=== PATIENT | male | born 1965 | race Caucasian/White ===

== ENCOUNTER 2017-02-02 15:30 | Emergency (ER) | payer OTHER ==
[2017-02-02 15:37] VITALS: BP 162/92; BMI 38.6
--- NOTE | 2017-02-02 17:22 | DR.EYE ---
HPI - Time Seen Time seen: 14:40 - PCP Primary Care Physician: carlos a - Complaint Chief Complaint Doctors Comments: History as stated. Visual acuity wnl. Chief Complaint:: patient stated he tripped and fell, hit his left eye on the gun safe around 1 pm today. Patient states he seen Dr. Infante at 2 today and was informed to come to ER.Patient denies any blurred vision/dilopia - Source History Provided: Patient - Mode of arrival Mode of Arrival: Ambulatory - Timing Onset of Chief Complaint: 02/02/17 PMH - PMH Past Medical History: Yes Past Medical History: Arthritis, COPD, Dyslipidemia, Hypertension, Hypothyroidism Past Surgical History: Yes Surgical History: Ortho Surgery Past Surgical History Comment: hernia repair - Family History History of Family Medical Conditions: Yes Family Medical History: Diabetes Mellitus, Hypertension - Social History Does patient currently use any type of tobacco product: Yes Have you used tobacco products in the last 12 months: Yes Type of Tobacco Use: Cigarettes Does any household member use tobacco: No Alcohol Use: None Do you use any recreational Drugs:: No Lives With: Significant Other Lives Where: Home - infectious screening In the last 2 months have you had wt loss of >10#?: NO Have you had fever, night sweats or hemotysis?: No Have you traveled outside the country in the last 6 months?: No Isolation: Standard ROS - Review of Systems Constitutional: negative: Diaphoresis Eyes: No Symptoms Reported ENTM: See HPI (Left medial canthus with a curvalinear laceration, 2cm laceration of left brown) Respiratoy: No Symptoms Reported Cardiovascular: No Symptoms Reported Gastrointestinal/Abdominal: No Symptoms Reported Genitourinary: No Symptoms Reported Neurological: No Symptoms Reported Musculoskeletal: No Symptoms Reported Integumentary: No Symptoms Reported Hematologic/Lymphatic: No Symptoms Reported Endocrine: No Symptoms Reported Psychiatric: No Symptoms Reported All Other Systems: Reviewed and Negative PE - Vital Signs Vitals: Temperature 97.8 F Pulse Rate 61 Respiratory Rate 19 Blood Pressure 162/92 O2 Sat by Pulse Oximetry 97 - General Limitations: No Limitations General Appearance: Alert, In No Apparent Distress - Head Head Exam: Normal Inspection, Atraumatic - Eyes Eye exam: Normal Appearance, PERRL, EOMI Eyelids: Laceration: Left (curvalinear 2cm laceration and a 2cm lac left brow) Pupils: Regular, Round: Bilateral Sclera/Conjunctival: Normal Inspection: Bilateral Anterior Chamber: Normal Inspection: Bilateral - ENT ENT Exam: Normal Exam, Normal Oropharynx External Ear Exam: Normal External Inspection TM/Canal Exam: Bilateral Normal Nose Exam: Normal Nose Exam, Sinus Tenderness Mouth Exam: Normal Inspection Throat Exam: Normal Inspection - Neck Neck Exam: Normal Inspection - Chest Chest Inspection: Normal Inspection - Respiratory Respiratory Exam: Normal Lung Sounds Bilat Respiratory Exam: Bilateral Clear to Auscultation - Cardiovascular Cardiovascular Exam: Regular Rate, Normal Rhythm - Abdominal Exam Abdominal Exam: Normal Inspection Abdominal Tenderness: negative: RUQ, RLQ, LUQ, LLQ, Epigastrium, Suprapubic, Diffuse, Mild, Moderate, Severe, Other - Extremities Extremities Exam: Normal Inspection, Full ROM - Back Back Exam: Normal Inspection - Neurologic Neurological Exam: Alert, Oriented X3, CN II-XII Intact - Psychiatric Psychiatric Exam: Normal Affect - Skin Skin Exam: Warm, Dry, Intact Procedures - Laceration/Wound Repair Left Eye Wound Length (cm): 4 Wound's Depth, Shape: Superficial, Linear, Irregular Wound Explored: clean Betadine Prep?: Yes Anesthesia: 1% Lidocaine w/ Epi Wound Repaired With: sutures Suture Size/Type: 5:0, Prolene Number of Sutures: 6 Layer Closure?: No - Diagnosis Discharge Problem: Left eye lid laceration Eye injury Qualifiers: Encounter type: initial encounter Laterality: left Qualified Code(s): S05.92XA - Unspecified injury of left eye and orbit, initial encounter - Discharge Plan Condition: Stable - Follow ups/Referrals Follow ups/Referrals: JENNI INFANTE [Primary Care Provider] - 3 days - Instructions
== END 2017-02-02 17:44 | disposition home or self-care (01) ==
LOC: ER 16:06
PROC: 08Q Eye, Repair (ICD-10-PCS; principal; 2017-02-02)
DX: S01.112A Laceration without foreign body of left eyelid and periocular area, initial encounter (principal); S05.92XA Unspecified injury of left eye and orbit, initial encounter; W01.198A Fall on same level from slipping, tripping and stumbling with subsequent striking against other object, initial encounter; Y92.9 Unspecified place or not applicable
CPT/HCPCS: 12013; 99282

== ENCOUNTER 2021-12-31 06:40 | Inpatient (IN) ==
--- NOTE | 2021-12-31 07:05 | DR.GENAD ---
HPI <GENO MUSTAFA - Last Filed: 12/31/21 07:12> Time Seen Time Seen by Provider: 12/31/21 07:03 PCP Primary Care Physician: DR PETERSON HPI Comment HPI Comment: A 56 y/o male presenting with scrotal swelling and tenderness onset since yesterday morning. He has had no fever. He states that he had a similar episode last year. He denies dysuria. Complaint/Symptoms Chief Complaint:: PT C/O SCROTAL SWELLING THAT STARTED YESTERDAY AND ALSO C/O "KNOT" IN THE SUPRAPUBIC AREA THAT IS PAINFUL WHEN SITTING DOWN. PT STATES THAT HE HAD THIS SAME PROBLEM LAST YEAR AND WAS DIAGNOSED WITH EPIDIMYSIS AND BECAME SEPTIC. Self Treatment fo Chief Complaint: PT WAS SEEN IN ER AND WAS DIAGNOSED WITH UTI ON 12/28/21 AND STARTED ON LEVAQUIN 750MG PO DAILY X 4 DAYS COVID-19 Coronavirus risk:travel/contact w/high risk person: No Has patient experienced Coronavirus symptoms: No Source History Provided: Patient Mode of Arrival Mode of Arrival: Ambulatory Timing Onset of Chief Complaint: 12/30/21 Came on: Gradually PMH <GENO MUSTAFA - Last Filed: 12/31/21 07:12> PMH Past Medical History: Yes Past Medical History: Anxiety, Depression, Diabetes, Hypertension and Hypothyroidism Past Medical History Comment: PULMONARY HTN Past Surgical History: Yes Surgical History: Ortho Surgery Past Surgical History Comment: GROIN SURGERY, HERNIA REPAIR Family History History of Family Medical Conditions: Yes Family Medical History: Diabetes Mellitus, Heart Failure and Hypertension Social History Does patient currently use any type of tobacco product: Yes Have you used tobacco products in the last 12 months: Yes Type of Tobacco Use: Cigarettes Does any household member use tobacco: No Alcohol Use: None Do you use any recreational Drugs:: No Lives With: Alone Lives Where: Home Travel Risk Coronavirus risk:travel/contact w/high risk person: No Has patient experienced Coronavirus symptoms: No Infectious screening In the last 2 months have you had wt loss of >10#?: NO Have you had fever, night sweats or hemotysis?: No Have you traveled outside the country in the last 6 months?: No Isolation: Standard ROS <GENO CEDILLO - Last Filed: 12/31/21 07:12> Review of Systems Constitutional: No Symptoms Reported Eyes: No Symptoms Reported ENTM: No Symptoms Reported Respiratoy: No Symptoms Reported Cardiovascular: No Symptoms Reported Gastrointestinal/Abdominal: No Symptoms Reported Genitourinary: Other (scrotal swelling) Neurological: No Symptoms Reported Musculoskeletal: No Symptoms Reported Integumentary: No Symptoms Reported Hematologic/Lymphatic: No Symptoms Reported Endocrine: No Symptoms Reported Psychiatric: No Symptoms Reported All Other Systems: Reviewed and Negative PE <GENO JUNE - Last Filed: 12/31/21 07:12> Vital Signs Vitals: Temperature 98.7 F Pulse Rate 84 Respiratory Rate 20 Blood Pressure [Right Arm] 156/78 Blood Pressure 121/71 O2 Sat by Pulse Oximetry 96 General Limitations: No Limitations General Appearance: Alert and In No Apparent Distress Head Head Exam: Normal Inspection, Atraumatic and Normocephalic Eyes Eye exam: Normal Appearance and EOMI ENT ENT Exam: Normal Exam, Normal Oropharynx, Normal External Ear Exam and Mucous Membranes Moist Neck Neck Exam: Normal Inspection, Full ROM and Trachea Midline Chest Chest Inspection: Normal Inspection and Symmetric Chest Wall Rise Respiratory Respiratory Exam: Normal Lung Sounds Bilat Cardiovascular Cardiovascular Exam: Regular Rate, Normal Rhythm, Normal Heart Sounds, +S1 and +S2 Abdominal Exam Abdominal Exam: Normal Inspection, Normal Bowel Sounds and Soft Extremities Extremities Exam: Normal Inspection and Full ROM Back Back Exam: Normal Inspection and Full ROM Neurologic Neurological Exam: Alert and Oriented X3 Psychiatric Psychiatric Exam: Normal Affect and Normal Mood Skin Skin Exam: Dry, Intact and Normal Color Other Exam Other Exam: EXAM: He is circumcised. There is no uretheral d/c noted. THere is scrotal swelling noted but no testicular tenderness elicited. <Singh Linares - Last Filed: 12/31/21 11:19> Vital Signs Vitals: Temperature 98.7 F Pulse Rate 84 Respiratory Rate 20 Blood Pressure [Right Arm] 156/78 Blood Pressure 121/71 O2 Sat by Pulse Oximetry 96 <Singh Linares - Last Filed: 12/31/21 11:19> Treatment Treatment: Pt signed over by Dr June. W/u shows increasing WBC count from previous visit, not feeling better. Pt had similar episode 1 year ago, treated for epididymitis, which turned into necrotizing fasciitis, had to have surgery to drain pus. Scrotum currently soft, mild tenderness. Pt given IV levaquin, flagyl. 1045 - Discussed with his attending, Dr Peterson. Will admit for IV antibiotics, especially in view of his past history. ROR <GENO JUNE - Last Filed: 12/31/21 07:12> Labs Reviewed Result Diagrams: 12/31/21 07:17 12/31/21 07:17 Laboratory: WBC 19.4 X10^3/uL (3.6-10.0) H D 12/31/21 07:17 RBC 4.62 X10^6/uL (4.7-6.0) L 12/31/21 07:17 Hgb 14.3 g/dL (13.5-18.0) 12/31/21 07:17 Hct 41.6 % (42.0-54.0) L 12/31/21 07:17 MCV 90.0 fL (80.0-100.0) 12/31/21 07:17 MCH 31.0 pg (27.0-34.0) 12/31/21 07:17 MCHC 34.4 g/dL (33.0-35.0) 12/31/21 07:17 RDW 15.4 % (11.6-16.5) 12/31/21 07:17 Plt Count 181 X10^3/uL (150.0-450.0) 12/31/21 07:17 MPV 7.7 fL (7.4-11.0) 12/31/21 07:17 Neut % (Auto) 83.4 % (42.0-75.0) H 12/31/21 07:17 Lymph % (Auto) 8.0 % (21.0-51.0) L 12/31/21 07:17 [place] % (Auto) 6.5 % (0.0-13.0) 12/31/21 07:17 Eos % (Auto) 0.5 % (0.9-2.9) L 12/31/21 07:17 Baso % (Auto) 1.6 % (0.2-1.0) H 12/31/21 07:17 Neut # (Auto) 16.2 x10^3/uL (2.2-4.8) H 12/31/21 07:17 Lymph # (Auto) 1.5 X10^3/uL (1.3-2.9) 12/31/21 07:17 [place] # (Auto) 1.3 x10^3/uL (0.3-0.8) H 12/31/21 07:17 Eos # (Auto) 0.1 x10^3/uL (0.0-0.2) 12/31/21 07:17 Baso # (Auto) 0.3 X10^3/uL (0.0-0.1) H 12/31/21 07:17 Absolute Nucleated RBC 0.0 /100WBC 12/31/21 07:17 Sodium 136 mmol/L (136-145) 12/31/21 07:17 Corrected Sodium 137 mmol/L (136-145) 12/31/21 07:17 Potassium 4.1 mmol/L (3.5-5.1) 12/31/21 07:17 Chloride 104 mmol/L (98-107) 12/31/21 07:17 Carbon Dioxide 21.8 mmol/L (21-32) 12/31/21 07:17 BUN 21 mg/dL (7-18) H 12/31/21 07:17 Creatinine 1.11 mg/dL (0.70-1.30) 12/31/21 07:17 Est GFR (MDRD) Af Amer > 60 (>60) 12/31/21 07:17 Est GFR (MDRD) Non-Af > 60 (>60) 12/31/21 07:17 Glucose 128 mg/dL (65-99) H 12/31/21 07:17 Lactic Acid 0.6 mmol/L (0.4-2.0) 12/31/21 07:58 Calcium 8.2 mg/dL (8.5-10.1) L 12/31/21 07:17 Corrected Calcium 9.5 mg/dL (8.5-10.1) 12/31/21 07:17 Total Bilirubin 0.80 mg/dL (0.2-1.0) 12/31/21 07:17 AST 14 Units/L (15-37) L 12/31/21 07:17 ALT 27 Units/L (12-78) 12/31/21 07:17 Alkaline Phosphatase 175 Units/L (46-116) H 12/31/21 07:17 Total Protein 6.7 g/dL (6.4-8.2) 12/31/21 07:17 Albumin 2.4 g/dL (3.4-5.0) L 12/31/21 07:17 Globulin 4.3 g/dL (2.5-4.5) 12/31/21 07:17 Albumin/Globulin Ratio 0.6 Ratio (1.1-2.1) L 12/31/21 07:17 Specimen Type Clean catch urine 12/31/21 08:30 Urine Color Yellow (YELLOW) 12/31/21 08:30 Urine Appearance Clear (CLEAR) 12/31/21 08:30 Urine pH 6.0 (5.0 - 8.0) 12/31/21 08:30 Ur Specific [place] 1.015 (1.000-1.030) 12/31/21 08:30 Urine Protein Negative (NEGATIVE) 12/31/21 08:30 Urine Glucose (UA) Negative (NEGATIVE) 12/31/21 08:30 Urine Ketones Negative (NEGATIVE) 12/31/21 08:30 Urine Blood Negative (NEGATIVE) 12/31/21 08:30 Urine Nitrite Negative (NEGATIVE) 12/31/21 08:30 Urine Bilirubin Negative (NEGATIVE) 12/31/21 08:30 Urine Urobilinogen Normal (NORMAL) 12/31/21 08:30 Ur Leukocyte Esterase Negative (NEGATIVE) 12/31/21 08:30 SARS-CoV-2 (PCR) Negative (NEGATIVE) 12/31/21 08:50 <Singh Linares - Last Filed: 12/31/21 11:19> Labs Reviewed Laboratory: WBC 19.4 X10^3/uL (3.6-10.0) H D 12/31/21 07:17 RBC 4.62 X10^6/uL (4.7-6.0) L 12/31/21 07:17 Hgb 14.3 g/dL (13.5-18.0) 12/31/21 07:17 Hct 41.6 % (42.0-54.0) L 12/31/21 07:17 MCV 90.0 fL (80.0-100.0) 12/31/21 07:17 MCH 31.0 pg (27.0-34.0) 12/31/21 07:17 MCHC 34.4 g/dL (33.0-35.0) 12/31/21 07:17 RDW 15.4 % (11.6-16.5) 12/31/21 07:17 Plt Count 181 X10^3/uL (150.0-450.0) 12/31/21 07:17 MPV 7.7 fL (7.4-11.0) 12/31/21 07:17 Neut % (Auto) 83.4 % (42.0-75.0) H 12/31/21 07:17 Lymph % (Auto) 8.0 % (21.0-51.0) L 12/31/21 07:17 [place] % (Auto) 6.5 % (0.0-13.0) 12/31/21 07:17 Eos % (Auto) 0.5 % (0.9-2.9) L 12/31/21 07:17 Baso % (Auto) 1.6 % (0.2-1.0) H 12/31/21 07:17 Neut # (Auto) 16.2 x10^3/uL (2.2-4.8) H 12/31/21 07:17 Lymph # (Auto) 1.5 X10^3/uL (1.3-2.9) 12/31/21 07:17 [place] # (Auto) 1.3 x10^3/uL (0.3-0.8) H 12/31/21 07:17 Eos # (Auto) 0.1 x10^3/uL (0.0-0.2) 12/31/21 07:17 Baso # (Auto) 0.3 X10^3/uL (0.0-0.1) H 12/31/21 07:17 Absolute Nucleated RBC 0.0 /100WBC 12/31/21 07:17 Sodium 136 mmol/L (136-145) 12/31/21 07:17 Corrected Sodium 137 mmol/L (136-145) 12/31/21 07:17 Potassium 4.1 mmol/L (3.5-5.1) 12/31/21 07:17 Chloride 104 mmol/L (98-107) 12/31/21 07:17 Carbon Dioxide 21.8 mmol/L (21-32) 12/31/21 07:17 BUN 21 mg/dL (7-18) H 12/31/21 07:17 Creatinine 1.11 mg/dL (0.70-1.30) 12/31/21 07:17 Est GFR (MDRD) Af Amer > 60 (>60) 12/31/21 07:17 Est GFR (MDRD) Non-Af > 60 (>60) 12/31/21 07:17 Glucose 128 mg/dL (65-99) H 12/31/21 07:17 Lactic Acid 0.6 mmol/L (0.4-2.0) 12/31/21 07:58 Calcium 8.2 mg/dL (8.5-10.1) L 12/31/21 07:17 Corrected Calcium 9.5 mg/dL (8.5-10.1) 12/31/21 07:17 Total Bilirubin 0.80 mg/dL (0.2-1.0) 12/31/21 07:17 AST 14 Units/L (15-37) L 12/31/21 07:17 ALT 27 Units/L (12-78) 12/31/21 07:17 Alkaline Phosphatase 175 Units/L (46-116) H 12/31/21 07:17 Total Protein 6.7 g/dL (6.4-8.2) 12/31/21 07:17 Albumin 2.4 g/dL (3.4-5.0) L 12/31/21 07:17 Globulin 4.3 g/dL (2.5-4.5) 12/31/21 07:17 Albumin/Globulin Ratio 0.6 Ratio (1.1-2.1) L 12/31/21 07:17 Specimen Type Clean catch urine 12/31/21 08:30 Urine Color Yellow (YELLOW) 12/31/21 08:30 Urine Appearance Clear (CLEAR) 12/31/21 08:30 Urine pH 6.0 (5.0 - 8.0) 12/31/21 08:30 Ur Specific [place] 1.015 (1.000-1.030) 12/31/21 08:30 Urine Protein Negative (NEGATIVE) 12/31/21 08:30 Urine Glucose (UA) Negative (NEGATIVE) 12/31/21 08:30 Urine Ketones Negative (NEGATIVE) 12/31/21 08:30 Urine Blood Negative (NEGATIVE) 12/31/21 08:30 Urine Nitrite Negative (NEGATIVE) 12/31/21 08:30 Urine Bilirubin Negative (NEGATIVE) 12/31/21 08:30 Urine Urobilinogen Normal (NORMAL) 12/31/21 08:30 Ur Leukocyte Esterase Negative (NEGATIVE) 12/31/21 08:30 SARS-CoV-2 (PCR) Negative (NEGATIVE) 12/31/21 08:50 Opioid <GENO JUNE - Last Filed: 12/31/21 07:12> Opioid Risk Tool Age (Donnie box if 16-45): No History of Preadolescent Sexual Abuse: No Total: 0 Total Score Risk Category: Low Risk Copyright: Pan FISHER predicting aberrant behaviors <Singh Linares - Last Filed: 12/31/21 11:19> Opioid Risk Tool Total: 0 Total Score Risk Category: Low Risk Discharge Plan Diagnosis Discharge Problem: Right epididymitis Discharge Plan Patient Disposition: ADMITTED INPATIENT Condition: Stable Orders to Discharge Patient Discharge Orders: Transfer (Routine); Ordered 12/31/21 Ordered By: Singh Linares
[2021-12-31 07:30] LABS: BASOPHILS # (AUTO) 0.3 X10^3/uL (0.0-0.1); BASOPHILS % (AUTO) 1.6 % (0.2-1.0); EOSINOPHILS # (AUTO) 0.1 x10^3/uL (0.0-0.2); EOSINOPHILS % (AUTO) 0.5 % (0.9-2.9); HEMATOCRIT 41.6 % (42.0-54.0); HEMOGLOBIN 14.3 g/dL (13.5-18.0); LYMPHOCYTES # (AUTO) 1.5 X10^3/uL (1.3-2.9); MEAN CORPUSCULAR HGB CONC 34.4 g/dL (33.0-35.0); MEAN PLATELET VOLUME 7.7 fL (7.4-11.0); MONOCYTES # (AUTO) 1.3 x10^3/uL (0.3-0.8); MONOCYTES % (AUTO) 6.5 % (0.0-13.0); NEUTROPHILS # (AUTO) 16.2 x10^3/uL (2.2-4.8); NEUTROPHILS % (AUTO) 83.4 % (42.0-75.0); RED BLOOD COUNT 4.62 X10^6/uL (4.7-6.0); RED CELL DISTRIBUTION WIDTH 15.4 % (11.6-16.5); WHITE BLOOD COUNT 19.4 X10^3/uL (3.6-10.0)
[2021-12-31 07:39] LABS: ALANINE AMINOTRANSFERASE 27 Units/L (12-78); ALBUMIN 2.4 g/dL (3.4-5.0); ALKALINE PHOSPHATASE 175 Units/L (46-116); ASPARTATE AMINO TRANSFERASE 14 Units/L (15-37); BLOOD UREA NITROGEN 21 mg/dL (7-18); CALCIUM 8.2 mg/dL (8.5-10.1); CARBON DIOXIDE 21.8 mmol/L (21-32); CHLORIDE 104 mmol/L (98-107); COR CA(FOR HYPOALB) 9.5 mg/dL (8.5-10.1); COR NA(FOR HYPERGLY) 137 mmol/L (136-145); CREATININE 1.11 mg/dL (0.70-1.30); SODIUM 136 mmol/L (136-145); TOTAL PROTEIN 6.7 g/dL (6.4-8.2); eGFR NON BLACK RACES > 60 (>60)
[2021-12-31 08:41] LABS: BILIRUBIN,URINE NEGATIVE (NEGATIVE); BLOOD/HEMOGLOBIN,URINE NEGATIVE (NEGATIVE); GLUCOSE, URINE NEGATIVE (NEGATIVE); KETONES,URINE NEGATIVE (NEGATIVE); LEUKOCYTE ESTERASE ,URINE NEGATIVE (NEGATIVE); NITRITES,URINE NEGATIVE (NEGATIVE); PROTEIN,URINE NEGATIVE (NEGATIVE); UROBILINOGEN,URINE NORMAL (NORMAL)
[2021-12-31 08:43] LABS: APPEARANCE,URINE CLEAR (CLEAR); COLOR,URINE YELLOW (YELLOW)
[2021-12-31] MEDS ORDERED: LEVAQUIN PREMIX IV 750 MG 750 MG/150 ML BAG IV SCH (09:00)
[2021-12-31] MEDS ORDERED: NS 1,000 ML IV 1,000 ML ONE (09:00)
[2021-12-31] MEDS ORDERED: FLAGYL IV PREMIX 500 MG BAG 500 MG/100 ML BAG IV ONE (09:00)
[2021-12-31] MEDS: FLAGYL IV PREMIX 500 MG BAG 500 MG/100 ML BAG IV SCH ×2 (09:07→20:59)
[2021-12-31] MEDS: NS 1,000 ML IV 1,000 ML IV SCH ×2 (09:08→21:01)
[2021-12-31] MEDS ORDERED: LEVAQUIN PREMIX IV 750 MG 750 MG/150 ML BAG IV ONE (10:25)
--- NOTE | 2021-12-31 11:18 | US ---
HISTORYSwollen scrotum.STUDYTESTICULARCOMPARISONTesticu lar ultrasound 04/26/2021.TECHNIQUETesticular ultrasound with Doppler.FINDINGSRight testicle measures 4.2 x 2.1 x 3.7 cm. Left testicle measures 4.6 x 2.2 x 3.8 cm. Right epididymal head measures 3.1 x 1.8 x 3.5 cm. Left epididymal head measures 3.4 x 2 x 4.1 cm. The epididymi appear enlarged and hyperechoic bilaterally. 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 Normal Doppler flow to both testicles. The scrotal wall is thickened. No hydrocele. No definite varicocele or spermatocele.IMPRESSIONEnlarged hyperechoic epididymi may represent bilateral epididymitis although the epididymi are not hypervascular on the images provided as is typical with epididymitis. Thickened scrotal wall may be reactive or due to cellulitis.Electronically signed by: Luis Crowe (Dec 31, 2021 11:17:11)
[2021-12-31] MEDS ORDERED: ALBUTEROL SULFATE 0.63 MG/3 ML IN PRN (11:23)
[2021-12-31] MEDS: SYNTHROID 100 mcg TAB PO SCH (11:41)
[2021-12-31] MEDS: CRESTOR TAB 10 MG PO SCH ×2 (11:41→20:58)
[2021-12-31] MEDS: NICOTINE PATCH TD SCH (14:36)
[2021-12-31] MEDS: MORPHINE SULFATE INJ 4 MG IVP PRN ×2 (18:04→22:44)
[2021-12-31] MEDS ORDERED: VANCOMYCIN IV ONE (19:59)
[2021-12-31] MEDS ORDERED: GENTAMICIN TOPICAL OINT ONE (19:59)
[2021-12-31] MEDS ORDERED: PIGGYBACK IV ONE (19:59)
[2021-12-31] MEDS ORDERED: VANCOMYCIN IV *PREMIX 1 G/200 ML BAG 1 G/200 ML PIGGYBACK IV SCH (20:00)
[2021-12-31] MEDS ORDERED: GLUCOPHAGE ONE (20:14)
[2021-12-31] MEDS: GENTAMICIN TOPICAL OINT TOP SCH (20:55)
[2021-12-31] MEDS: GLUCOPHAGE PO SCH (20:58)
[2021-12-31] MEDS ORDERED: VANCOMYCIN IV *PREMIX 750 mg/150 ML BAG 750 MG/150 ML PIGGYBACK IV ONE (21:00)
[2022-01-01 06:17] LABS: BASOPHILS # (AUTO) 0.2 X10^3/uL (0.0-0.1); BASOPHILS % (AUTO) 1.1 % (0.2-1.0); EOSINOPHILS # (AUTO) 0.1 x10^3/uL (0.0-0.2); EOSINOPHILS % (AUTO) 0.7 % (0.9-2.9); HEMATOCRIT 41.9 % (42.0-54.0); HEMOGLOBIN 14.3 g/dL (13.5-18.0); LYMPHOCYTES # (AUTO) 2.4 X10^3/uL (1.3-2.9); LYMPHOCYTES % (AUTO) 13.8 % (21.0-51.0); MEAN CORPUSCULAR HEMOGLOBIN 30.8 pg (27.0-34.0); MEAN CORPUSCULAR HGB CONC 34.1 g/dL (33.0-35.0); MEAN CORPUSCULAR VOLUME 90.3 fL (80.0-100.0); MEAN PLATELET VOLUME 8.2 fL (7.4-11.0); MONOCYTES # (AUTO) 1.5 x10^3/uL (0.3-0.8); MONOCYTES % (AUTO) 8.8 % (0.0-13.0); NEUTROPHILS # (AUTO) 13.2 x10^3/uL (2.2-4.8); NEUTROPHILS % (AUTO) 75.6 % (42.0-75.0); RED BLOOD COUNT 4.64 X10^6/uL (4.7-6.0); RED CELL DISTRIBUTION WIDTH 15.6 % (11.6-16.5); WHITE BLOOD COUNT 17.5 X10^3/uL (3.6-10.0)
[2022-01-01 06:40] LABS: LACTIC ACID 0.6 mmol/L (0.4-2.0)
[2022-01-01 06:48] LABS: ALANINE AMINOTRANSFERASE 24 Units/L (12-78); ALBUMIN 2.3 g/dL (3.4-5.0); ALKALINE PHOSPHATASE 172 Units/L (46-116); ASPARTATE AMINO TRANSFERASE 15 Units/L (15-37); BLOOD UREA NITROGEN 14 mg/dL (7-18); CALCIUM 8.8 mg/dL (8.5-10.1); CARBON DIOXIDE 23.5 mmol/L (21-32); CHLORIDE 105 mmol/L (98-107); COR CA(FOR HYPOALB) 10.2 mg/dL (8.5-10.1); COR NA(FOR HYPERGLY) 137 mmol/L (136-145); CREATININE 0.85 mg/dL (0.70-1.30); SODIUM 137 mmol/L (136-145); TOTAL PROTEIN 7.1 g/dL (6.4-8.2); eGFR NON BLACK RACES > 60 (>60)
[2022-01-01] MEDS ORDERED: GLUCOPHAGE ONE ×2 (08:59→19:39)
[2022-01-01] MEDS: GLUCOPHAGE PO SCH ×2 (09:02→20:22)
[2022-01-01] MEDS: NORVASC TAB 10 MG PO SCH (09:02)
[2022-01-01] MEDS: NICOTINE PATCH TD SCH (09:02)
[2022-01-01] MEDS: PAXIL PO SCH (09:02)
[2022-01-01] MEDS: SYNTHROID 100 mcg TAB PO SCH (09:02)
[2022-01-01] MEDS: NS 1,000 ML IV 1,000 ML IV SCH (09:04)
[2022-01-01] MEDS: GENTAMICIN TOPICAL OINT TOP SCH ×2 (09:04→20:22)
[2022-01-01] MEDS: VANCOMYCIN IV *PREMIX 1.25 G/250 ML BAG 1.25 G/250 ML PIGGYBACK IV SCH ×2 (09:04→20:21)
[2022-01-01] MEDS: FLAGYL IV PREMIX 500 MG BAG 500 MG/100 ML BAG IV SCH ×2 (10:25→21:23)
[2022-01-01] MEDS: LEVAQUIN PREMIX IV 750 MG 750 MG/150 ML BAG IV SCH (11:40)
--- NOTE | 2022-01-01 12:05 | DR.H&P ---
H&P - History & Physical for Day of: H&P Date: 12/31/21 - Chief Complaint Chief Complaint: SCROTAL SWELLING AND PAIN - History of Present Illness History of Present Illness: PATIENT IS A 56 YEAR OLD WHITE MALE. HE IS A REGULAR PATIENT OF OURS. HE PRESENTED WITH REPORTS OF SCROTAL PAIN THAT STARTED ONE DAY PRIOR TO ARRIVAL. HE REPORTS A KNOT IN THE SUPRAPUBIC ARE THAT IS PAINFUL WHEN SITTING. HE ALSO REPORTS A SMALL AMOUNT OF SEROSANGUINOUS DRAINAGE FROM SCROTUM. PATIENT REPORTS A HISTORY OF EPIDIDIMYTIS IN THE PAST, FOR WHICH HE BECAME SEPTIC. HE HAS BEEN TAKING LEVAQUIN 750MG PO DAILY FOR THE PAST 4 DAYS DUE TO A URINARY TRACT INFECTION DIAGNOSIS. HIS PMH INCLUDES: HTN, HYPOTHYROIDISM, ANXIETY, DEPRESSION, DM II, PULMONARY HTN, HERNIA REPAIR. ON ARRIVAL, HIS VITALS WERE: 98.7-84-20-96%-121/71. LABS WERE OBTAINED. WBC 19.4, RBC 4.62, HGB 14.3, HCT 41.6, PLT COUNT 181, SODIUM 136, POTASSIUM 4.1, BUN 21, CREATININE 1.11, GLUCOSE 128, CALCIUM 8.2, AST 14, ALT 27, ALK PHOS 175, TOTAL PROTEIN 6.7, ALBUMIN 2.4, LACTIC ACID 0.6. A URINALYSIS WAS OBTAINED AND WAS UNREMARKABLE. COVID-19 NEGATIVE. BLOOD CULTURES WERE SET UP. WE WILL ALSO SET UP A CULTURE OF THE DRAINAGE. A TESTICULAR ULTRASOUND WAS OBTAINED AND REVEALED: Enlarged h yperechoic epididymi may represent bilateral epididymitis although the epididymis are not hypervascular on the images provided as is typical with epididymitis. Thickened scrotal wall may be reactive or due to cellulitis. IN THE ER, HE WAS GIVEN VANCOMYCIN 750MG IV X 1 DOSE. HE WAS ADMITTED TO THE [facility] AND TREATMENT OF BILATERAL EPIDIDYMITIS. HE WAS STARTED ON NORMAL SALINE AT KVO, VANCOMYCIN 1.25G IV Q12H, LEVAQUIN 750MG IV DAILY, FLAGYL 500MG IV Q12H, MORPHINE 4MG IV Q4H PRN, GENTAMICIN OINTMENT BID. HIS HOME MEDICATIONS OF ALBUTEROL NEB [place] QID PRN, AMLODIPINE 10MG PO DAILY, SYNTHROID 200MCG DAILY, GLUCOPHAGE 500MG PO BID, PAXIL 20MG PO HS, CRESTOR 10MG PO HS WERE ALSO RESUMED. OTHERWISE, WE PLAN TO FOLLOW-UP WITH AM LABS AND CONTINUE TO MONITOR. TIME SPENT ON CLINICAL ASSESSMENT, REVIWING LABS AND IMAGING, DECISION MAKING, AND DOCUMENTATION GREATER THAN 75 MINUTES. - Past Medical History Past Medical History: Hypertension, Diabetes, Depression, Anxiety, Hypothyroidism - Past Surgical History Surgical History: Ortho Surgery - Family History Family Medical History: Cancer, Hypertension - Social History Does patient currently use any type of tobacco product: No Have you used tobacco products in the last 12 months: No Type of Tobacco Use: None Does any household member use tobacco: No Alcohol Use: None Drug Use: None - Medications Home Medications: Penicillins Allergy (Verified 12/28/21 08:43) CONTINUE taking the following medications ketorolac 10 mg tablet 50 mg PO TID PRN pain 12/31/21 [History] levofloxacin 500 mg tablet 750 mg PO QDAY 12/31/21 [History] levothyroxine 200 mcg tablet (Euthyrox) 200 mcg PO QDAY 12/31/21 [History] - Review of Systems Constitutional: See HPI Eyes: No Symptoms Reported ENT: No Symptoms Reported Respiratory: No Symptoms Reported Cardiovascular: No Symptoms Reported Gastrointestinal: No Symptoms Reported Genitourinary: See HPI, Other (SCROTAL EDEMA AND PAIN ) Musculoskeletal: No Symptoms Reported Skin: No Symptoms Reported Neurological: No Symptoms Reported - Physical Exam Vital Signs: Temperature 98.1 F Pulse Rate [Left Radial] 70 Pulse Rate 80 Respiratory Rate 20 Blood Pressure [Right Arm] 152/76 Blood Pressure 121/71 O2 Sat by Pulse Oximetry 94 Oriented: Normal Eyes: Normal Ear: Normal Nose: Normal Throat: Normal Respiratory: Clear Throughout Cardiovascular: Normal : Testicular Pain, Other (SCROTAL EDEMA AND PAIN ) Auscultation: Bowel Sounds: Normal Palpation: Normal Tenderness: Normal Skin: Normal Musculoskeletal: Normal Psychiatric: Normal Mood Description: Calm Affect: Normal Speech Pattern: Clear - Assessment/Plan (1) Acute epididymitis Status: Acute Plan: ADMIT, NORMAL SALINE AT KVO, VANCOMYCIN 1.25G IV Q12H, LEVAQUIN 750MG IV DAILY, FLAGYL 500MG IV Q12H, MORPHINE 4MG IV Q4H PRN, GENTAMICIN OINTMENT BID. 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
--- NOTE | 2022-01-01 13:24 | PCM.PROG ---
Progress Note - Progress Note for Day of Date of Exam: 01/01/22 - Subjective Subjective: WAS ADMITTED FOR TREATMENT OF ACUTE BILATERAL EPIDIDYMITIS. HE HAS A PMH OF HTN, HYPOTHYROIDISM, DM II. TODAY, HE IS ALERT AND ORIENTED, LYING IN BED ON MORNING ROUNDS. HE CONTINUES WITH COMPLAINTS OF TESTICULAR PAIN AND SCROTAL SWELLING. HE DOES REPORT SLIGHT IMPROVEMENT IN PAIN AND SWELLING SINCE YESTERDAY ON ADMISSION. HIS VITALS THIS MORNING ARE: 98.1-70-20-94%-152/76. LABS WERE OBTAINED. WBC DECREASED TO 17.5, RBC 4.64, HGB 14.3, HCT 41.9, PLT COUNT 223, SODIUM 137, POTASSIUM 3.9, CHLORIDE 105, BUN 14, CREATININE 0.85, GLUCOSE 116, LACTIC ACID 0.6, CALCIUM 8.8, AST 15, ALT 24, ALK PHOS 172, TOTAL PROTEIN 7.1, ALBUMIN 2.3. HE CONTINUES TO RECEIVE NORMAL SALINE AT KVO, VANCOMYCIN 1.25G IV Q12H, LEVAQUIN 750MG IV DAILY, FLAGYL 500MG IV Q12H, MORPHINE 4MG IV Q4H PRN, GENTAMICIN OINTMENT BID. HIS HOME MEDICATIONS OF ALBUTEROL NEB [place] QID PRN, AMLODIPINE 10MG PO DAILY, SYNTHROID 200MCG DAILY, GLUCOPHAGE 500MG PO BID, PAXIL 20MG PO HS, CRESTOR 10MG PO HS WERE ALSO RESUMED. WE WILL CONTINUE WITH CURRENT PLAN OF CARE TODAY. OTHERWISE, WE PLAN TO FOLLOW- UP WITH AM LABS AND CONTINUE TO MONITOR. TIME SPENT ON CLINICAL ASSESSMENT, REVIWING LABS AND IMAGING, DECISION MAKING, AND DOCUMENTATION GREATER THAN 45 MINUTES. - Past Medical Family Social History Past Med/Fam/Surg Hx: No changes since H&P Allergies: Allergies Penicillins Allergy (Verified 12/28/21 08:43) - Review of Systems ROS: No change since H&P - Vital Signs and I&O's Vital Signs: Temperature 98.3 F Pulse Rate [Left Radial] 59 Pulse Rate 80 Respiratory Rate 20 Blood Pressure [Right Arm] 120/75 Blood Pressure 121/71 O2 Sat by Pulse Oximetry 94 Intake and Output: Intake & Output 12/30/21 12/31/21 01/01/22 01/02/22 11:59 11:59 11:59 11:59 Intake Total 1130 / 1130 Output Total 320 / 320 Balance 810 / 810 - Physical Exam Oriented: Normal Eyes: Normal Ear: Normal Nose: Normal Throat: Normal Cardiovascular: Normal : Testicular Pain, Other (SCROTAL EDEMA AND PAIN ) Auscultation: Bowel Sounds: Normal Palpation: Normal Tenderness: Normal Skin: Normal Musculoskeletal: Normal Psychiatric: Normal Mood Description: Calm Affect: Normal Speech Pattern: Clear - Laboratory and Diagnostics Result Diagrams: 01/01/22 05:12 01/01/22 05:12 Labs: Laboratory WBC 17.5 X10^3/uL (3.6-10.0) H 01/01/22 05:12 RBC 4.64 X10^6/uL (4.7-6.0) L 01/01/22 05:12 Hgb 14.3 g/dL (13.5-18.0) 01/01/22 05:12 Hct 41.9 % (42.0-54.0) L 01/01/22 05:12 MCV 90.3 fL (80.0-100.0) 01/01/22 05:12 MCH 30.8 pg (27.0-34.0) 01/01/22 05:12 MCHC 34.1 g/dL (33.0-35.0) 01/01/22 05:12 RDW 15.6 % (11.6-16.5) 01/01/22 05:12 Plt Count 223 X10^3/uL (150.0-450.0) 01/01/22 05:12 MPV 8.2 fL (7.4-11.0) 01/01/22 05:12 Neut % (Auto) 75.6 % (42.0-75.0) H 01/01/22 05:12 Lymph % (Auto) 13.8 % (21.0-51.0) L 01/01/22 05:12 [place] % (Auto) 8.8 % (0.0-13.0) 01/01/22 05:12 Eos % (Auto) 0.7 % (0.9-2.9) L 01/01/22 05:12 Baso % (Auto) 1.1 % (0.2-1.0) H 01/01/22 05:12 Neut # (Auto) 13.2 x10^3/uL (2.2-4.8) H 01/01/22 05:12 Lymph # (Auto) 2.4 X10^3/uL (1.3-2.9) 01/01/22 05:12 [place] # (Auto) 1.5 x10^3/uL (0.3-0.8) H 01/01/22 05:12 Eos # (Auto) 0.1 x10^3/uL (0.0-0.2) 01/01/22 05:12 Baso # (Auto) 0.2 X10^3/uL (0.0-0.1) H 01/01/22 05:12 Absolute Nucleated RBC 0.1 /100WBC 01/01/22 05:12 Sodium 137 mmol/L (136-145) 01/01/22 05:12 Corrected Sodium 137 mmol/L (136-145) 01/01/22 05:12 Potassium 3.9 mmol/L (3.5-5.1) 01/01/22 05:12 Chloride 105 mmol/L (98-107) 01/01/22 05:12 Carbon Dioxide 23.5 mmol/L (21-32) 01/01/22 05:12 BUN 14 mg/dL (7-18) 01/01/22 05:12 Creatinine 0.85 mg/dL (0.70-1.30) 01/01/22 05:12 Est GFR (MDRD) Af Amer > 60 (>60) 01/01/22 05:12 Est GFR (MDRD) Non-Af > 60 (>60) 01/01/22 05:12 Glucose 116 mg/dL (65-99) H 01/01/22 05:12 POC Glucose (mg/dL) 134 mg/dL (65-99) H 01/01/22 11:38 Lactic Acid 0.6 mmol/L (0.4-2.0) 01/01/22 05:12 Calcium 8.8 mg/dL (8.5-10.1) 01/01/22 05:12 Corrected Calcium 10.2 mg/dL (8.5-10.1) H 01/01/22 05:12 Total Bilirubin 0.70 mg/dL (0.2-1.0) 01/01/22 05:12 AST 15 Units/L (15-37) 01/01/22 05:12 ALT 24 Units/L (12-78) 01/01/22 05:12 Alkaline Phosphatase 172 Units/L (46-116) H 01/01/22 05:12 Total Protein 7.1 g/dL (6.4-8.2) 01/01/22 05:12 Albumin 2.3 g/dL (3.4-5.0) L 01/01/22 05:12 Globulin 4.8 g/dL (2.5-4.5) H 01/01/22 05:12 Albumin/Globulin Ratio 0.5 Ratio (1.1-2.1) L 01/01/22 05:12 Specimen Type Clean catch urine 12/31/21 08:30 Urine Color Yellow (YELLOW) 12/31/21 08:30 Urine Appearance Clear (CLEAR) 12/31/21 08:30 Urine pH 6.0 (5.0 - 8.0) 12/31/21 08:30 Ur Specific [place] 1.015 (1.000-1.030) 12/31/21 08:30 Urine Protein Negative (NEGATIVE) 12/31/21 08:30 Urine Glucose (UA) Negative (NEGATIVE) 12/31/21 08:30 Urine Ketones Negative (NEGATIVE) 12/31/21 08:30 Urine Blood Negative (NEGATIVE) 12/31/21 08:30 Urine Nitrite Negative (NEGATIVE) 12/31/21 08:30 Urine Bilirubin Negative (NEGATIVE) 12/31/21 08:30 Urine Urobilinogen Normal (NORMAL) 12/31/21 08:30 Ur Leukocyte Esterase Negative (NEGATIVE) 12/31/21 08:30 SARS-CoV-2 (PCR) Negative (NEGATIVE) 12/31/21 08:50 - Plan (1) Acute epididymitis Status: Acute Plan: NORMAL SALINE AT KVO, VANCOMYCIN 1.25G IV Q12H, LEVAQUIN 750MG IV DAILY, FLAGYL 500MG IV Q12H, MORPHINE 4MG IV Q4H PRN, GENTAMICIN OINTMENT BID. 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
[2022-01-01] MEDS: MORPHINE SULFATE INJ 4 MG IVP PRN ×2 (16:33→21:23)
[2022-01-01] MEDS: CRESTOR TAB 10 MG PO SCH (20:22)
[2022-01-02 05:55] LABS: BASOPHILS # (AUTO) 0.1 X10^3/uL (0.0-0.1); BASOPHILS % (AUTO) 0.4 % (0.2-1.0); EOSINOPHILS # (AUTO) 0.1 x10^3/uL (0.0-0.2); EOSINOPHILS % (AUTO) 0.9 % (0.9-2.9); HEMATOCRIT 40.4 % (42.0-54.0); HEMOGLOBIN 13.9 g/dL (13.5-18.0); LYMPHOCYTES # (AUTO) 2.4 X10^3/uL (1.3-2.9); LYMPHOCYTES % (AUTO) 15.2 % (21.0-51.0); MEAN CORPUSCULAR HEMOGLOBIN 30.7 pg (27.0-34.0); MEAN CORPUSCULAR HGB CONC 34.5 g/dL (33.0-35.0); MEAN CORPUSCULAR VOLUME 88.9 fL (80.0-100.0); MEAN PLATELET VOLUME 7.6 fL (7.4-11.0); MONOCYTES # (AUTO) 1.3 x10^3/uL (0.3-0.8); MONOCYTES % (AUTO) 8.3 % (0.0-13.0); NEUTROPHILS # (AUTO) 11.7 x10^3/uL (2.2-4.8); NEUTROPHILS % (AUTO) 75.2 % (42.0-75.0); RED BLOOD COUNT 4.54 X10^6/uL (4.7-6.0); RED CELL DISTRIBUTION WIDTH 15.5 % (11.6-16.5); WHITE BLOOD COUNT 15.6 X10^3/uL (3.6-10.0)
[2022-01-02 06:06] LABS: ALANINE AMINOTRANSFERASE 26 Units/L (12-78); ALBUMIN 2.3 g/dL (3.4-5.0); ALKALINE PHOSPHATASE 152 Units/L (46-116); ASPARTATE AMINO TRANSFERASE 20 Units/L (15-37); BLOOD UREA NITROGEN 14 mg/dL (7-18); CALCIUM 8.6 mg/dL (8.5-10.1); CARBON DIOXIDE 25.9 mmol/L (21-32); CHLORIDE 104 mmol/L (98-107); CREATININE 0.88 mg/dL (0.70-1.30); SODIUM 136 mmol/L (136-145); TOTAL PROTEIN 7.1 g/dL (6.4-8.2); eGFR NON BLACK RACES > 60 (>60)
[2022-01-02] MEDS ORDERED: GLUCOPHAGE ONE ×2 (07:43→20:20)
[2022-01-02] MEDS: GLUCOPHAGE PO SCH ×2 (08:56→20:29)
[2022-01-02] MEDS: NORVASC TAB 10 MG PO SCH (08:56)
[2022-01-02] MEDS: PAXIL PO SCH (08:56)
[2022-01-02] MEDS: SYNTHROID 100 mcg TAB PO SCH (08:57)
[2022-01-02] MEDS: NICOTINE PATCH TD SCH (08:57)
[2022-01-02] MEDS: GENTAMICIN TOPICAL OINT TOP SCH ×2 (08:57→20:30)
[2022-01-02] MEDS: NS 1,000 ML IV 1,000 ML IV SCH (09:03)
[2022-01-02] MEDS: MORPHINE SULFATE INJ 4 MG IVP PRN ×2 (09:06→16:10)
[2022-01-02] MEDS: FLAGYL IV PREMIX 500 MG BAG 500 MG/100 ML BAG IV SCH ×2 (09:06→22:30)
[2022-01-02] MEDS ORDERED: MILK OF MAGNESIA PO PRN (09:13)
[2022-01-02 10:10] LABS: CREATININE 0.88 mg/dL (0.70-1.30); VANCOMYCIN,TROUGH 6.6 ug/mL (15-20)
[2022-01-02] MEDS: LEVAQUIN PREMIX IV 750 MG 750 MG/150 ML BAG IV SCH (10:56)
[2022-01-02] MEDS ORDERED: NS 50 ML IV 50 ML IV ONE (11:03)
[2022-01-02] MEDS: VANCOMYCIN IV *PREMIX 1.5 G/300 ML BAG 1.5 G/300 ML PIGGYBACK IV SCH ×2 (13:10→20:30)
[2022-01-02] MEDS: VANCOMYCIN IV *PREMIX 1.25 G/250 ML BAG 1.25 G/250 ML PIGGYBACK IV SCH (13:38)
--- NOTE | 2022-01-02 20:15 | PCM.PROG ---
Progress Note - Progress Note for Day of Date of Exam: 01/02/22 - Subjective Subjective: WAS ADMITTED FOR TREATMENT OF ACUTE BILATERAL EPIDIDYMITIS. HE HAS A PMH OF HTN, HYPOTHYROIDISM, DM II. TODAY, HE IS ALERT AND ORIENTED, LYING IN BED ON MORNING ROUNDS. HE CONTINUES WITH COMPLAINTS OF TESTICULAR PAIN AND SCROTAL SWELLING. HE REPORTS THAT PAIN AND SWELLING ARE SLIGHTLY WORSE TODAY. HIS VITALS THIS MORNING ARE: 98.0-71-20-92%-154/91. LABS WERE OBTAINED. WBC 15.6, RBC 4.54, HGB 13.9, HCT 40.4, SODIUM 136, POTASSIUM 4.0, CHLORIDE 104, BUN 14, CREATININE 0.88, GLUCOSE 108, CALCIUM 8.6, AST 20, ALT 26, ALK PHOS 152, TOTAL PROTEIN 7.1, ALBUMIN 2.3. WOUND AND BLOOD CULTURES ARE PENDING. HE CONTINUES TO RECEIVE NORMAL SALINE AT KVO, VANCOMYCIN 1.25G IV Q12H, LEVAQUIN 750MG IV DAILY, FLAGYL 500MG IV Q12H, MORPHINE 4MG IV Q4H PRN, GENTAMICIN OINTMENT BID. HIS HOME MEDICATIONS OF ALBUTEROL NEB TX QID PRN, AMLODIPINE 10MG PO DAILY, SYNTHROID 200MCG DAILY, GLUCOPHAGE 500MG PO BID, PAXIL 20MG PO HS, CRESTOR 10MG PO HS WERE ALSO RESUMED. WE WILL CONTINUE WITH CURRENT PLAN OF CARE TODAY. WE WILL CONSULT WITH , GENERAL SURGEON, TO EVALUATE SCROTUM. OTHERWISE, WE PLAN TO FOLLOW-UP WITH AM LABS AND CONTINUE TO MONITOR. TIME SPENT ON CLINICAL ASSESSMENT, REVIWING LABS AND IMAGING, DECISION MAKING, AND DOCUMENTATION GREATER THAN 45 MINUTES. - Past Medical Family Social History Past Med/Fam/Surg Hx: No changes since H&P Allergies: Allergies Penicillins Allergy (Verified 12/28/21 08:43) - Review of Systems ROS: No change since H&P - Vital Signs and I&O's Vital Signs: Temperature 98.8 F Pulse Rate [Left Radial] 73 Pulse Rate 80 Respiratory Rate 20 Blood Pressure [Right Arm] 142/84 Blood Pressure 121/71 O2 Sat by Pulse Oximetry 92 Intake and Output: Intake & Output 12/31/21 01/01/22 01/02/22 01/03/22 11:59 11:59 11:59 11:59 Intake Total 1130 / 1130 2240 / 2240 1380 / 1380 Output Total 320 / 320 Balance 810 / 810 2240 / 2240 1380 / 1380 - Physical Exam Oriented: Normal Eyes: Normal Ear: Normal Nose: Normal Throat: Normal Cardiovascular: Normal : Testicular Pain, Other (SCROTAL EDEMA AND PAIN ) Auscultation: Bowel Sounds: Normal Palpation: Normal Tenderness: Normal Skin: Normal Musculoskeletal: Normal Psychiatric: Normal Mood Description: Calm Affect: Normal Speech Pattern: Clear, Appropriate - Laboratory and Diagnostics Result Diagrams: 01/02/22 05:22 01/02/22 09:46 Labs: 12/31/21 07:58 Blood Blood Culture - Preliminary 12/31/21 07:55 Blood Blood Culture - Preliminary 01/01/22 09:30 Penis Wound Culture - Preliminary Laboratory WBC 15.6 X10^3/uL (3.6-10.0) H 01/02/22 05:22 RBC 4.54 X10^6/uL (4.7-6.0) L 01/02/22 05:22 Hgb 13.9 g/dL (13.5-18.0) 01/02/22 05:22 Hct 40.4 % (42.0-54.0) L 01/02/22 05:22 MCV 88.9 fL (80.0-100.0) 01/02/22 05:22 MCH 30.7 pg (27.0-34.0) 01/02/22 05:22 MCHC 34.5 g/dL (33.0-35.0) 01/02/22 05:22 RDW 15.5 % (11.6-16.5) 01/02/22 05:22 Plt Count 268 X10^3/uL (150.0-450.0) 01/02/22 05:22 MPV 7.6 fL (7.4-11.0) 01/02/22 05:22 Neut % (Auto) 75.2 % (42.0-75.0) H 01/02/22 05:22 Lymph % (Auto) 15.2 % (21.0-51.0) L 01/02/22 05:22 [place] % (Auto) 8.3 % (0.0-13.0) 01/02/22 05:22 Eos % (Auto) 0.9 % (0.9-2.9) 01/02/22 05:22 Baso % (Auto) 0.4 % (0.2-1.0) 01/02/22 05:22 Neut # (Auto) 11.7 x10^3/uL (2.2-4.8) H 01/02/22 05:22 Lymph # (Auto) 2.4 X10^3/uL (1.3-2.9) 01/02/22 05:22 [place] # (Auto) 1.3 x10^3/uL (0.3-0.8) H 01/02/22 05:22 Eos # (Auto) 0.1 x10^3/uL (0.0-0.2) 01/02/22 05:22 Baso # (Auto) 0.1 X10^3/uL (0.0-0.1) 01/02/22 05:22 Absolute Nucleated RBC 0.0 /100WBC 01/02/22 05:22 Sodium 136 mmol/L (136-145) 01/02/22 05:22 Corrected Sodium TNP 01/02/22 05:22 Potassium 4.0 mmol/L (3.5-5.1) 01/02/22 05:22 Chloride 104 mmol/L (98-107) 01/02/22 05:22 Carbon Dioxide 25.9 mmol/L (21-32) 01/02/22 05:22 BUN 14 mg/dL (7-18) 01/02/22 05:22 Creatinine 0.88 mg/dL (0.70-1.30) 01/02/22 09:46 Est GFR (MDRD) Af Amer > 60 (>60) 01/02/22 05:22 Est GFR (MDRD) Non-Af > 60 (>60) 01/02/22 05:22 Glucose 108 mg/dL (65-99) H 01/02/22 05:22 POC Glucose (mg/dL) 93 mg/dL (65-99) 01/02/22 16:10 Lactic Acid 0.6 mmol/L (0.4-2.0) 01/01/22 05:12 Calcium 8.6 mg/dL (8.5-10.1) 01/02/22 05:22 Corrected Calcium 10.0 mg/dL (8.5-10.1) 01/02/22 05:22 Total Bilirubin 0.60 mg/dL (0.2-1.0) 01/02/22 05:22 AST 20 Units/L (15-37) 01/02/22 05:22 ALT 26 Units/L (12-78) 01/02/22 05:22 Alkaline Phosphatase 152 Units/L (46-116) H 01/02/22 05:22 Total Protein 7.1 g/dL (6.4-8.2) 01/02/22 05:22 Albumin 2.3 g/dL (3.4-5.0) L 01/02/22 05:22 Globulin 4.8 g/dL (2.5-4.5) H 01/02/22 05:22 Albumin/Globulin Ratio 0.5 Ratio (1.1-2.1) L 01/02/22 05:22 Specimen Type Clean catch urine 12/31/21 08:30 Urine Color Yellow (YELLOW) 12/31/21 08:30 Urine Appearance Clear (CLEAR) 12/31/21 08:30 Urine pH 6.0 (5.0 - 8.0) 12/31/21 08:30 Ur Specific [place] 1.015 (1.000-1.030) 12/31/21 08:30 Urine Protein Negative (NEGATIVE) 12/31/21 08:30 Urine Glucose (UA) Negative (NEGATIVE) 12/31/21 08:30 Urine Ketones Negative (NEGATIVE) 12/31/21 08:30 Urine Blood Negative (NEGATIVE) 12/31/21 08:30 Urine Nitrite Negative (NEGATIVE) 12/31/21 08:30 Urine Bilirubin Negative (NEGATIVE) 12/31/21 08:30 Urine Urobilinogen Normal (NORMAL) 12/31/21 08:30 Ur Leukocyte Esterase Negative (NEGATIVE) 12/31/21 08:30 Vancomycin Trough 6.6 ug/mL (15-20) L 01/02/22 09:46 SARS-CoV-2 (PCR) Negative (NEGATIVE) 12/31/21 08:50 - Plan (1) Acute epididymitis Status: Acute Plan: NORMAL SALINE AT KVO, VANCOMYCIN 1.25G IV Q12H, LEVAQUIN 750MG IV DAILY, FLAGYL 500MG IV Q12H, MORPHINE 4MG IV Q4H PRN, GENTAMICIN OINTMENT BID. 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
[2022-01-02] MEDS: COLACE CAP 100 MG PO SCH (20:29)
[2022-01-02] MEDS: CRESTOR TAB 10 MG PO SCH (20:29)
--- NOTE | 2022-01-02 22:29 | CT ---
PROCEDURE: CT Abdomen and Pelvis with Contrast .HISTORY: pt states penis abscess .TECHNIQUE: Axial images were performed through the abdomen and pelvis with the administration of IV contrast with multiplanar reformations . Oral contrast was not administered. Dose reduction techniques including Automated Exposure Control (AEC) and adjustment of mA and kV were utilized .COMPARISON: 12/28/2021.TECHNICAL QUALITY: Satisfactory .FINDINGS:Linear scar versus discoid atelectasis lung bases.Liver, spleen, adrenals, pancreas show no abnormality.Kidneys show no masses or obstruction.Normal biliary tract.No ascites or pneumoperitoneum.Normal aorta.No lymphadenopathy.No bowel obstruction or inflammation. Appendix is unremarkable.Pelvis shows no masses or free fluid. 3.7 cm posterior left bladder diverticulum.7.4 x 2.8 cm loculated fluid collection at the base of the penis could be related abscess, seroma, or hematoma.No acute bony abnormality.IMPRESSION:1. Loculated fluid collection base of the penis could be related abscess, hematoma, or seroma.2. Posterior left bladder diverticulum.Electronically signed by: Faustino Liz (Jan 02, 2022 22:27:47)
[2022-01-03] MEDS: MORPHINE SULFATE INJ 4 MG IVP PRN ×2 (00:15→16:22)
[2022-01-03] MEDS: ACCUNEB 1.25 MG NEBULE IN PRN ×2 (00:36→21:00)
[2022-01-03 05:33] LABS: BASOPHILS # (AUTO) 0.2 X10^3/uL (0.0-0.1); EOSINOPHILS # (AUTO) 0.1 x10^3/uL (0.0-0.2); EOSINOPHILS % (AUTO) 0.8 % (0.9-2.9); HEMATOCRIT 41.5 % (42.0-54.0); HEMOGLOBIN 14.3 g/dL (13.5-18.0); LYMPHOCYTES # (AUTO) 2.3 X10^3/uL (1.3-2.9); LYMPHOCYTES % (AUTO) 13.6 % (21.0-51.0); MEAN CORPUSCULAR HEMOGLOBIN 30.6 pg (27.0-34.0); MEAN CORPUSCULAR HGB CONC 34.4 g/dL (33.0-35.0); MONOCYTES # (AUTO) 1.4 x10^3/uL (0.3-0.8); MONOCYTES % (AUTO) 8.5 % (0.0-13.0); NEUTROPHILS # (AUTO) 12.7 x10^3/uL (2.2-4.8); NEUTROPHILS % (AUTO) 76.1 % (42.0-75.0); RED BLOOD COUNT 4.67 X10^6/uL (4.7-6.0); RED CELL DISTRIBUTION WIDTH 15.3 % (11.6-16.5); WHITE BLOOD COUNT 16.7 X10^3/uL (3.6-10.0)
[2022-01-03 05:50] LABS: ALANINE AMINOTRANSFERASE 33 Units/L (12-78); ALBUMIN 2.3 g/dL (3.4-5.0); ALKALINE PHOSPHATASE 146 Units/L (46-116); ASPARTATE AMINO TRANSFERASE 23 Units/L (15-37); BLOOD UREA NITROGEN 15 mg/dL (7-18); CALCIUM 8.3 mg/dL (8.5-10.1); CARBON DIOXIDE 24.9 mmol/L (21-32); CHLORIDE 105 mmol/L (98-107); COR CA(FOR HYPOALB) 9.7 mg/dL (8.5-10.1); COR NA(FOR HYPERGLY) 137 mmol/L (136-145); CREATININE 0.84 mg/dL (0.70-1.30); SODIUM 136 mmol/L (136-145); TOTAL PROTEIN 7.1 g/dL (6.4-8.2); eGFR NON BLACK RACES > 60 (>60)
[2022-01-03] MEDS ORDERED: GLUCOPHAGE ONE ×2 (07:40→20:53)
[2022-01-03] MEDS: GLUCOPHAGE PO SCH ×2 (08:23→21:00)
[2022-01-03] MEDS: PAXIL PO SCH (08:24)
[2022-01-03] MEDS: NICOTINE PATCH TD SCH (08:24)
[2022-01-03] MEDS: NORVASC TAB 10 MG PO SCH (08:24)
[2022-01-03] MEDS: SYNTHROID 100 mcg TAB PO SCH (08:24)
[2022-01-03] MEDS: NS 1,000 ML IV 1,000 ML IV SCH ×2 (08:25→20:03)
[2022-01-03] MEDS: GENTAMICIN TOPICAL OINT TOP SCH ×2 (08:25→21:01)
[2022-01-03] MEDS: VANCOMYCIN IV *PREMIX 1.5 G/300 ML BAG 1.5 G/300 ML PIGGYBACK IV SCH ×2 (09:30→21:02)
[2022-01-03] MEDS ORDERED: DILAUDID INJ IVP ONE (10:23)
[2022-01-03] MEDS ORDERED: XYLOCAINE 1 % (PLAIN) ONE (10:24)
[2022-01-03] MEDS ORDERED: DILAUDID INJ ONE (10:25)
[2022-01-03] MEDS: LEVAQUIN PREMIX IV 750 MG 750 MG/150 ML BAG IV SCH (10:51)
--- NOTE | 2022-01-03 10:55 | DR.PROGNOT ---
Hospital Progress Notes - Progress Note for Day of: Progress Note Date: 01/03/22 - Chief Complaint Chief Complaint: CT showed fluid collection at the base of the penis possible abscess . WBC 16.7 .BS 126 . U/A normal . needle aspirate revealed minimal bloody fluid .. - Past Medical Family Social History Past Med/Fam/Surg Hx: No changes since H&P Allergies: Allergies Penicillins Allergy (Verified 12/28/21 08:43) - Review Of Systems ROS: No change since H&P - Vital Signs Vital Signs: Temperature 98.1 F Pulse Rate [Left Radial] 53 Pulse Rate 63 Respiratory Rate 18 Blood Pressure [Right Arm] 145/72 Blood Pressure 121/71 O2 Sat by Pulse Oximetry 92 - Physical Exam Oriented: Normal Eyes: Normal Ear: Normal Nose: Normal Throat: Normal Cardiovascular: Normal : Testicular Pain, Other (SCROTAL EDEMA AND PAIN ) GI:Auscultation: Normal GI:Palpation: Normal GI: Tenderness: Normal Skin: Normal Musculoskeletal: Normal Psychiatric: Normal Mood Description: Calm Affect: Normal Speech Pattern: Clear, Appropriate - Laboratory and Diagnostics Result Diagrams: 01/03/22 05:20 01/03/22 05:20 Labs: 01/01/22 09:30 Penis Wound Culture - Preliminary 12/31/21 07:58 Blood Blood Culture - Preliminary 12/31/21 07:55 Blood Blood Culture - Preliminary Laboratory WBC 16.7 X10^3/uL (3.6-10.0) H 01/03/22 05:20 RBC 4.67 X10^6/uL (4.7-6.0) L 01/03/22 05:20 Hgb 14.3 g/dL (13.5-18.0) 01/03/22 05:20 Hct 41.5 % (42.0-54.0) L 01/03/22 05:20 MCV 89.0 fL (80.0-100.0) 01/03/22 05:20 MCH 30.6 pg (27.0-34.0) 01/03/22 05:20 MCHC 34.4 g/dL (33.0-35.0) 01/03/22 05:20 RDW 15.3 % (11.6-16.5) 01/03/22 05:20 Plt Count 329 X10^3/uL (150.0-450.0) 01/03/22 05:20 MPV 7.0 fL (7.4-11.0) L 01/03/22 05:20 Neut % (Auto) 76.1 % (42.0-75.0) H 01/03/22 05:20 Lymph % (Auto) 13.6 % (21.0-51.0) L 01/03/22 05:20 [place] % (Auto) 8.5 % (0.0-13.0) 01/03/22 05:20 Eos % (Auto) 0.8 % (0.9-2.9) L 01/03/22 05:20 Baso % (Auto) 1.0 % (0.2-1.0) 01/03/22 05:20 Neut # (Auto) 12.7 x10^3/uL (2.2-4.8) H 01/03/22 05:20 Lymph # (Auto) 2.3 X10^3/uL (1.3-2.9) 01/03/22 05:20 [place] # (Auto) 1.4 x10^3/uL (0.3-0.8) H 01/03/22 05:20 Eos # (Auto) 0.1 x10^3/uL (0.0-0.2) 01/03/22 05:20 Baso # (Auto) 0.2 X10^3/uL (0.0-0.1) H 01/03/22 05:20 Absolute Nucleated RBC 0.0 /100WBC 01/03/22 05:20 Sodium 136 mmol/L (136-145) 01/03/22 05:20 Corrected Sodium 137 mmol/L (136-145) 01/03/22 05:20 Potassium 3.8 mmol/L (3.5-5.1) 01/03/22 05:20 Chloride 105 mmol/L (98-107) 01/03/22 05:20 Carbon Dioxide 24.9 mmol/L (21-32) 01/03/22 05:20 BUN 15 mg/dL (7-18) 01/03/22 05:20 Creatinine 0.84 mg/dL (0.70-1.30) 01/03/22 05:20 Est GFR (MDRD) Af Amer > 60 (>60) 01/03/22 05:20 Est GFR (MDRD) Non-Af > 60 (>60) 01/03/22 05:20 Glucose 126 mg/dL (65-99) H 01/03/22 05:20 POC Glucose (mg/dL) 121 mg/dL (65-99) H 01/03/22 05:23 Lactic Acid 0.6 mmol/L (0.4-2.0) 01/01/22 05:12 Calcium 8.3 mg/dL (8.5-10.1) L 01/03/22 05:20 Corrected Calcium 9.7 mg/dL (8.5-10.1) 01/03/22 05:20 Total Bilirubin 0.60 mg/dL (0.2-1.0) 01/03/22 05:20 AST 23 Units/L (15-37) 01/03/22 05:20 ALT 33 Units/L (12-78) 01/03/22 05:20 Alkaline Phosphatase 146 Units/L (46-116) H 01/03/22 05:20 Total Protein 7.1 g/dL (6.4-8.2) 01/03/22 05:20 Albumin 2.3 g/dL (3.4-5.0) L 01/03/22 05:20 Globulin 4.8 g/dL (2.5-4.5) H 01/03/22 05:20 Albumin/Globulin Ratio 0.5 Ratio (1.1-2.1) L 01/03/22 05:20 Specimen Type Clean catch urine 12/31/21 08:30 Urine Color Yellow (YELLOW) 12/31/21 08:30 Urine Appearance Clear (CLEAR) 12/31/21 08:30 Urine pH 6.0 (5.0 - 8.0) 12/31/21 08:30 Ur Specific [place] 1.015 (1.000-1.030) 12/31/21 08:30 Urine Protein Negative (NEGATIVE) 12/31/21 08:30 Urine Glucose (UA) Negative (NEGATIVE) 12/31/21 08:30 Urine Ketones Negative (NEGATIVE) 12/31/21 08:30 Urine Blood Negative (NEGATIVE) 12/31/21 08:30 Urine Nitrite Negative (NEGATIVE) 12/31/21 08:30 Urine Bilirubin Negative (NEGATIVE) 12/31/21 08:30 Urine Urobilinogen Normal (NORMAL) 12/31/21 08:30 Ur Leukocyte Esterase Negative (NEGATIVE) 12/31/21 08:30 Vancomycin Trough 6.6 ug/mL (15-20) L 01/02/22 09:46 SARS-CoV-2 (PCR) Negative (NEGATIVE) 12/31/21 08:50 - Assessment and Plan 1: soft tissue abscess and epididymitis . sinus tract Lt lower penis with purulent drainage . same IV ABT pending final C&S .. - Problem Patient Problems: Patient Problems Acute epididymitis (Acute) N45.1 Diabetes mellitus (Chronic) E11.9 Right epididymitis (Acute) N45.1 HTN (hypertension) (Chronic) I10 Hypothyroidism (Chronic) E03.9
[2022-01-03] MEDS: FLAGYL IV PREMIX 500 MG BAG 500 MG/100 ML BAG IV SCH ×2 (11:08→22:43)
--- NOTE | 2022-01-03 16:12 | PCM.PROG ---
Progress Note - Progress Note for Day of Date of Exam: 01/03/22 - Subjective Subjective: WAS ADMITTED FOR TREATMENT OF ACUTE BILATERAL EPIDIDYMITIS. HE HAS A PMH OF HTN, HYPOTHYROIDISM, DM II. TODAY, HE IS ALERT AND ORIENTED, LYING IN BED ON MORNING ROUNDS. HE CONTINUES WITH COMPLAINTS OF TESTICULAR PAIN AND SCROTAL SWELLING. HE REPORTS THAT PAIN AND SWELLING HAVE SLIGHTLY IMPROVED TODAY. HIS VITALS THIS MORNING ARE: 98.1-53-18-92%-145/72. LABS WERE OBTAINED. WBC 16.7, RBC 4.67, HGB 14.3, HCT 41.5, PLT COUNG 329, SODIUM 136, POTASSIUM 3.8, CHLORIDE 105, BUN 15, CREATININE 0.84, GLUCOSE 126, CALCIUM 8.3, AST 23, ALT 33, ALK PHOS 146, TOTAL PROTEIN 7.1, ALBUMIN 2.3. WOUND AND BLOOD CULTURES ARE PENDING. AN ABDOMEN/PELVIS CT WITH CONTRAST WAS OBTAINED YESTERDAY AND REVEALED: 1. Loculated fluid collection base of the penis could be related abscess, hematoma, or seroma. 2. Posterior left bladder diverticulum. HE CONTINUES TO RECEIVE NORMAL SALINE AT KVO, VANCOMYCIN 1.25G IV Q12H, LEVAQUIN 750MG IV DAILY, FLAGYL 500MG IV Q12H, MORPHINE 4MG IV Q4H PRN, GENTAMICIN OINTMENT BID. HIS HOME MEDICATIONS OF ALBUTEROL NEB [place] QID PRN, AMLODIPINE 10MG PO DAILY, SYNTHROID 200MCG DAILY, GLUCOPHAGE 500MG PO BID, PAXIL 20MG PO HS, CRESTOR 10MG PO HS WERE ALSO RESUMED. CONSULTED WITH PATIENT AND PLANS FOR NEEDLE ASPIRATION AT BEDSIDE. WE ARE IN AGREEMENT WITH PLANS. OTHERWISE, WE PLAN TO FOLLOW-UP WITH AM LABS AND CONTINUE TO MONITOR. TIME SPENT ON CLINICAL ASSESSMENT, REVIWING LABS AND IMAGING, DECISION MAKING, AND DOCUMENTATION GREATER THAN 45 MINUTES. - Past Medical Family Social History Past Med/Fam/Surg Hx: No changes since H&P Allergies: Allergies Penicillins Allergy (Verified 12/28/21 08:43) - Review of Systems ROS: No change since H&P - Vital Signs and I&O's Vital Signs: Temperature 98 F Pulse Rate [Left Radial] 59 Pulse Rate 63 Respiratory Rate 18 Blood Pressure [Right Arm] 129/76 Blood Pressure 121/71 O2 Sat by Pulse Oximetry 91 Intake and Output: Intake & Output 01/01/22 01/02/22 01/03/22 01/04/22 11:59 11:59 11:59 11:59 Intake Total 1130 / 1130 2240 / 2240 3143 / 3143 450 / 450 Output Total 320 / 320 Balance 810 / 810 2240 / 2240 3143 / 3143 450 / 450 - Physical Exam Oriented: Normal Eyes: Normal Ear: Normal Nose: Normal Throat: Normal Cardiovascular: Normal : Testicular Pain, Other (SCROTAL EDEMA AND PAIN ) Auscultation: Bowel Sounds: Normal Tenderness: Normal Skin: Normal Musculoskeletal: Normal Psychiatric: Normal Mood Description: Calm Affect: Normal Speech Pattern: Clear, Appropriate - Laboratory and Diagnostics Result Diagrams: 01/03/22 05:20 01/03/22 05:20 Labs: 01/03/22 11:00 Penis Wound Gram Stain - Final 01/01/22 09:30 Penis Wound Culture - Preliminary 12/31/21 07:58 Blood Blood Culture - Preliminary 12/31/21 07:55 Blood Blood Culture - Preliminary Laboratory WBC 16.7 X10^3/uL (3.6-10.0) H 01/03/22 05:20 RBC 4.67 X10^6/uL (4.7-6.0) L 01/03/22 05:20 Hgb 14.3 g/dL (13.5-18.0) 01/03/22 05:20 Hct 41.5 % (42.0-54.0) L 01/03/22 05:20 MCV 89.0 fL (80.0-100.0) 01/03/22 05:20 MCH 30.6 pg (27.0-34.0) 01/03/22 05:20 MCHC 34.4 g/dL (33.0-35.0) 01/03/22 05:20 RDW 15.3 % (11.6-16.5) 01/03/22 05:20 Plt Count 329 X10^3/uL (150.0-450.0) 01/03/22 05:20 MPV 7.0 fL (7.4-11.0) L 01/03/22 05:20 Neut % (Auto) 76.1 % (42.0-75.0) H 01/03/22 05:20 Lymph % (Auto) 13.6 % (21.0-51.0) L 01/03/22 05:20 [place] % (Auto) 8.5 % (0.0-13.0) 01/03/22 05:20 Eos % (Auto) 0.8 % (0.9-2.9) L 01/03/22 05:20 Baso % (Auto) 1.0 % (0.2-1.0) 01/03/22 05:20 Neut # (Auto) 12.7 x10^3/uL (2.2-4.8) H 01/03/22 05:20 Lymph # (Auto) 2.3 X10^3/uL (1.3-2.9) 01/03/22 05:20 [place] # (Auto) 1.4 x10^3/uL (0.3-0.8) H 01/03/22 05:20 Eos # (Auto) 0.1 x10^3/uL (0.0-0.2) 01/03/22 05:20 Baso # (Auto) 0.2 X10^3/uL (0.0-0.1) H 01/03/22 05:20 Absolute Nucleated RBC 0.0 /100WBC 01/03/22 05:20 Sodium 136 mmol/L (136-145) 01/03/22 05:20 Corrected Sodium 137 mmol/L (136-145) 01/03/22 05:20 Potassium 3.8 mmol/L (3.5-5.1) 01/03/22 05:20 Chloride 105 mmol/L (98-107) 01/03/22 05:20 Carbon Dioxide 24.9 mmol/L (21-32) 01/03/22 05:20 BUN 15 mg/dL (7-18) 01/03/22 05:20 Creatinine 0.84 mg/dL (0.70-1.30) 01/03/22 05:20 Est GFR (MDRD) Af Amer > 60 (>60) 01/03/22 05:20 Est GFR (MDRD) Non-Af > 60 (>60) 01/03/22 05:20 Glucose 126 mg/dL (65-99) H 01/03/22 05:20 POC Glucose (mg/dL) 75 mg/dL (65-99) 01/03/22 11:15 Lactic Acid 0.6 mmol/L (0.4-2.0) 01/01/22 05:12 Calcium 8.3 mg/dL (8.5-10.1) L 01/03/22 05:20 Corrected Calcium 9.7 mg/dL (8.5-10.1) 01/03/22 05:20 Total Bilirubin 0.60 mg/dL (0.2-1.0) 01/03/22 05:20 AST 23 Units/L (15-37) 01/03/22 05:20 ALT 33 Units/L (12-78) 01/03/22 05:20 Alkaline Phosphatase 146 Units/L (46-116) H 01/03/22 05:20 Total Protein 7.1 g/dL (6.4-8.2) 01/03/22 05:20 Albumin 2.3 g/dL (3.4-5.0) L 01/03/22 05:20 Globulin 4.8 g/dL (2.5-4.5) H 01/03/22 05:20 Albumin/Globulin Ratio 0.5 Ratio (1.1-2.1) L 01/03/22 05:20 Specimen Type Clean catch urine 12/31/21 08:30 Urine Color Yellow (YELLOW) 12/31/21 08:30 Urine Appearance Clear (CLEAR) 12/31/21 08:30 Urine pH 6.0 (5.0 - 8.0) 12/31/21 08:30 Ur Specific [place] 1.015 (1.000-1.030) 12/31/21 08:30 Urine Protein Negative (NEGATIVE) 12/31/21 08:30 Urine Glucose (UA) Negative (NEGATIVE) 12/31/21 08:30 Urine Ketones Negative (NEGATIVE) 12/31/21 08:30 Urine Blood Negative (NEGATIVE) 12/31/21 08:30 Urine Nitrite Negative (NEGATIVE) 12/31/21 08:30 Urine Bilirubin Negative (NEGATIVE) 12/31/21 08:30 Urine Urobilinogen Normal (NORMAL) 12/31/21 08:30 Ur Leukocyte Esterase Negative (NEGATIVE) 12/31/21 08:30 Vancomycin Trough 6.6 ug/mL (15-20) L 01/02/22 09:46 SARS-CoV-2 (PCR) Negative (NEGATIVE) 12/31/21 08:50 - Plan (1) Acute epididymitis Status: Acute Plan: NORMAL SALINE AT KVO, VANCOMYCIN 1.25G IV Q12H, LEVAQUIN 750MG IV DAILY, FLAGYL 500MG IV Q12H, MORPHINE 4MG IV Q4H PRN, GENTAMICIN OINTMENT BID. RESUME HOME MEDS (2) HTN (hypertension) Status: Chronic Qualifiers: Hypertension type: primary hypertension Qualified Code(s): I10 - Essential (primary) hypertension (3) Hypothyroidism Status: Chronic Qualifiers: Hypothyroidism type: acquired Qualified Code(s): E03.9 - Hypothyroidism, unspecified (4) Diabetes mellitus Status: Chronic Qualifiers: Diabetes mellitus type: type 2 Diabetes mellitus shelter insulin use: with [place]erman use Diabetes mellitus complication status: with other specified complication Qualified Code(s): E11.69 - Type 2 diabetes mellitus with other specified complication; Z79.4 - MCFP (current) use of insulin
[2022-01-03 20:26] LABS: CREATININE 1.06 mg/dL (0.70-1.30); VANCOMYCIN,TROUGH 12.2 ug/mL (15-20)
[2022-01-03] MEDS ORDERED: PHARMACY COMMENT IV ONE (20:30)
[2022-01-03] MEDS: COLACE CAP 100 MG PO SCH (21:00)
[2022-01-03] MEDS: CRESTOR TAB 10 MG PO SCH (21:01)
[2022-01-04] MEDS: MORPHINE SULFATE INJ 4 MG IVP PRN (01:39)
[2022-01-04 05:26] LABS: BASOPHILS % (AUTO) 0.1 % (0.2-1.0); EOSINOPHILS # (AUTO) 0.1 x10^3/uL (0.0-0.2); EOSINOPHILS % (AUTO) 0.5 % (0.9-2.9); HEMATOCRIT 44.9 % (42.0-54.0); HEMOGLOBIN 15.2 g/dL (13.5-18.0); LYMPHOCYTES # (AUTO) 1.2 X10^3/uL (1.3-2.9); LYMPHOCYTES % (AUTO) 5.8 % (21.0-51.0); MEAN CORPUSCULAR HEMOGLOBIN 30.3 pg (27.0-34.0); MEAN CORPUSCULAR HGB CONC 33.9 g/dL (33.0-35.0); MEAN CORPUSCULAR VOLUME 89.4 fL (80.0-100.0); MEAN PLATELET VOLUME 6.7 fL (7.4-11.0); MONOCYTES # (AUTO) 0.5 x10^3/uL (0.3-0.8); MONOCYTES % (AUTO) 2.4 % (0.0-13.0); NEUTROPHILS # (AUTO) 18.4 x10^3/uL (2.2-4.8); NEUTROPHILS % (AUTO) 91.2 % (42.0-75.0); RED BLOOD COUNT 5.02 X10^6/uL (4.7-6.0); RED CELL DISTRIBUTION WIDTH 15.3 % (11.6-16.5); WHITE BLOOD COUNT 20.1 X10^3/uL (3.6-10.0)
[2022-01-04 05:45] LABS: ALANINE AMINOTRANSFERASE 32 Units/L (12-78); ALKALINE PHOSPHATASE 158 Units/L (46-116); ASPARTATE AMINO TRANSFERASE 27 Units/L (15-37); BLOOD UREA NITROGEN 15 mg/dL (7-18); CALCIUM 8.9 mg/dL (8.5-10.1); CARBON DIOXIDE 22.7 mmol/L (21-32); CHLORIDE 102 mmol/L (98-107); COR NA(FOR HYPERGLY) 136 mmol/L (136-145); SODIUM 135 mmol/L (136-145); TOTAL PROTEIN 8.1 g/dL (6.4-8.2); eGFR NON BLACK RACES > 60 (>60)
[2022-01-04 05:56] LABS: BAND NEUTROPHILS % 1 % (0-10); PLATELET MORPHOLOGY COMMENT NORMAL (NORMAL)
[2022-01-04 06:09] LABS: COR CA(FOR HYPOALB) 10.3 mg/dL (8.5-10.1)
[2022-01-04 06:11] LABS: ALBUMIN 2.3 g/dL (3.4-5.0)
[2022-01-04] MEDS ORDERED: GLUCOPHAGE ONE ×2 (08:31→19:58)
[2022-01-04] MEDS: NICOTINE PATCH TD SCH (08:36)
[2022-01-04] MEDS: GLUCOPHAGE PO SCH ×2 (08:37→20:25)
[2022-01-04] MEDS: PAXIL PO SCH (08:37)
[2022-01-04] MEDS: SYNTHROID 100 mcg TAB PO SCH (08:37)
[2022-01-04] MEDS: NORVASC TAB 10 MG PO SCH (08:37)
[2022-01-04] MEDS: VANCOMYCIN IV *PREMIX 1.5 G/300 ML BAG 1.5 G/300 ML PIGGYBACK IV SCH ×2 (08:38→20:24)
[2022-01-04] MEDS: GENTAMICIN TOPICAL OINT TOP SCH ×2 (08:38→21:16)
[2022-01-04] MEDS: NS 1,000 ML IV 1,000 ML IV SCH (09:43)
[2022-01-04] MEDS: TORADOL 30 MG VIAL IVP SCH ×2 (12:33→21:16)
[2022-01-04] MEDS: FORTAZ or TAZICEF VIAL INJ 1 G in NS 100 ML IV 100 ML IV SCH ×2 (12:33→23:00)
--- NOTE | 2022-01-04 12:46 | PCM.PROG ---
Progress Note - Progress Note for Day of Date of Exam: 01/04/22 - Subjective Subjective: WAS ADMITTED FOR TREATMENT OF ACUTE BILATERAL EPIDIDYMITIS. HE HAS A PMH OF HTN, HYPOTHYROIDISM, DM II. TODAY, HE IS ALERT AND ORIENTED, LYING IN BED ON MORNING ROUNDS. HE CONTINUES WITH COMPLAINTS OF TESTICULAR PAIN AND SCROTAL SWELLING. HE REPORTS THAT PAIN AND SWELLING HAVE SLIGHTLY IMPROVED TODAY. PERFORMED AN ASPIRATION AT BEDSIDE AND ONLY COLLECTED BLOODY DRAINAGE. HE SENT DRAINAGE FOR A CULTURE. HIS VITALS THIS MORNING ARE: 98.5-92-22-90%-156/82. LABS WERE OBTAINED. WBC INCREASED TO 20.1, RBC 5.02, HGB 15.2, HCT 44.9, SODIUM 135, POTASSIUM 4.6, CHLORIDE 102, BUN 15, CREATININE 1.00, GLUCOSE 121, CALCIUM 8.9, AST 27, ALT 32, ALK PHOS 158, TOTAL PROTEIN 8.1, ALBUMIN 2.3. WOUND AND BLOOD CULTURES ARE PENDING. AN ABDOMEN/PELVIS CT WITH CONTRAST WAS OBTAINED YESTERDAY AND REVEALED: 1. Loculated fluid collection base of the penis could be related abscess, hematoma, or seroma. 2. Posterior left bladder diverticulum. HE CONTINUES TO RECEIVE NORMAL SALINE AT KVO, VANCOMYCIN 1.25G IV Q12H, LEVAQUIN 750MG IV DAILY, FLAGYL 500MG IV Q12H, MORPHINE 4MG IV Q4H PRN, GENTAMICIN OINTMENT BID. HIS HOME MEDICATIONS OF ALBUTEROL NEB [place] QID PRN, AMLODIPINE 10MG PO DAILY, SYNTHROID 200MCG DAILY, GLUCOPHAGE 500MG PO BID, PAXIL 20MG PO HS, CRESTOR 10MG PO HS WERE ALSO RESUMED. DUE TO INCREASING WBC, WE WILL DISCONTINUE THE LEVAQUIN AND ADD FORTAZ 1G IV Q8H. WE WILL ALSO ADD TORADOL 30MG IV Q8H FOR PAIN. OTHERWISE, WE WILL CONTINUE WITH CURRENT PLAN OF CARE TODAY. WE PLAN TO FOLLOW-UP WITH AM LABS AND CONTINUE TO MONITOR. TIME SPENT ON CLINICAL ASSESSMENT, REVIWING LABS AND IMAGING, DECISION MAKING, AND DOCUMENTATION GREATER THAN 45 MINUTES. - Past Medical Family Social History Past Med/Fam/Surg Hx: No changes since H&P Allergies: Allergies Penicillins Allergy (Verified 12/28/21 08:43) - Review of Systems ROS: No change since H&P - Vital Signs and I&O's Vital Signs: Temperature 98.4 F Pulse Rate [Left Radial] 67 Pulse Rate 84 Respiratory Rate 20 Blood Pressure [Right Arm] 122/76 Blood Pressure 121/71 O2 Sat by Pulse Oximetry 91 Intake and Output: Intake & Output 01/02/22 01/03/22 01/04/22 01/05/22 11:59 11:59 11:59 11:59 Intake Total 2240 / 2240 3143 / 3143 1456 / 1456 Balance 2240 / 2240 3143 / 3143 1456 / 1456 - Physical Exam Oriented: Normal Eyes: Normal Ear: Normal Nose: Normal Throat: Normal Respiratory: Generalized, Diminished Cardiovascular: Normal : Testicular Pain, Other (SCROTAL EDEMA AND PAIN ) Auscultation: Bowel Sounds: Normal Palpation: Normal Tenderness: Normal Skin: Normal Musculoskeletal: Normal Psychiatric: Normal Mood Description: Calm Affect: Normal Speech Pattern: Clear, Appropriate - Laboratory and Diagnostics Result Diagrams: 01/04/22 05:13 01/04/22 05:13 Labs: 01/03/22 11:00 Penis Wound Gram Stain - Final 01/03/22 11:00 Penis Wound Culture - Preliminary 01/01/22 09:30 Penis Wound Culture - Final 12/31/21 07:58 Blood Blood Culture - Preliminary 12/31/21 07:55 Blood Blood Culture - Preliminary Laboratory WBC 20.1 X10^3/uL (3.6-10.0) H 01/04/22 05:13 RBC 5.02 X10^6/uL (4.7-6.0) 01/04/22 05:13 Hgb 15.2 g/dL (13.5-18.0) 01/04/22 05:13 Hct 44.9 % (42.0-54.0) 01/04/22 05:13 MCV 89.4 fL (80.0-100.0) 01/04/22 05:13 MCH 30.3 pg (27.0-34.0) 01/04/22 05:13 MCHC 33.9 g/dL (33.0-35.0) 01/04/22 05:13 RDW 15.3 % (11.6-16.5) 01/04/22 05:13 Plt Count 385 X10^3/uL (150.0-450.0) 01/04/22 05:13 Plt Count Comment Adequate (ADEQUATE) 01/04/22 05:13 MPV 6.7 fL (7.4-11.0) L 01/04/22 05:13 Neut % (Auto) 91.2 % (42.0-75.0) H 01/04/22 05:13 Lymph % (Auto) 5.8 % (21.0-51.0) L 01/04/22 05:13 [place] % (Auto) 2.4 % (0.0-13.0) 01/04/22 05:13 Eos % (Auto) 0.5 % (0.9-2.9) L 01/04/22 05:13 Baso % (Auto) 0.1 % (0.2-1.0) L 01/04/22 05:13 Neut # (Auto) 18.4 x10^3/uL (2.2-4.8) H 01/04/22 05:13 Lymph # (Auto) 1.2 X10^3/uL (1.3-2.9) L 01/04/22 05:13 [place] # (Auto) 0.5 x10^3/uL (0.3-0.8) 01/04/22 05:13 Eos # (Auto) 0.1 x10^3/uL (0.0-0.2) 01/04/22 05:13 Baso # (Auto) 0.0 X10^3/uL (0.0-0.1) 01/04/22 05:13 Absolute Nucleated RBC 0.0 /100WBC 01/04/22 05:13 Total Counted 100 01/04/22 05:13 Neutrophils % (Manual) 87 % (39-76) H 01/04/22 05:13 Band Neutrophils % 1 % (0-10) 01/04/22 05:13 Lymphocytes % (Manual) 9 % (13-43) L 01/04/22 05:13 Monocytes % (Manual) 3 % (4-9) L 01/04/22 05:13 Plt Morphology Comment Normal (NORMAL) 01/04/22 05:13 RBC Morphology Normal (NORMAL) 01/04/22 05:13 Sodium 135 mmol/L (136-145) L 01/04/22 05:13 Corrected Sodium 136 mmol/L (136-145) 01/04/22 05:13 Potassium 4.6 mmol/L (3.5-5.1) 01/04/22 05:13 Chloride 102 mmol/L (98-107) 01/04/22 05:13 Carbon Dioxide 22.7 mmol/L (21-32) 01/04/22 05:13 BUN 15 mg/dL (7-18) 01/04/22 05:13 Creatinine 1.00 mg/dL (0.70-1.30) 01/04/22 05:13 Est GFR (MDRD) Af Amer > 60 (>60) 01/04/22 05:13 Est GFR (MDRD) Non-Af > 60 (>60) 01/04/22 05:13 Glucose 121 mg/dL (65-99) H 01/04/22 05:13 POC Glucose (mg/dL) 119 mg/dL (65-99) H 01/04/22 11:12 Lactic Acid 0.6 mmol/L (0.4-2.0) 01/01/22 05:12 Calcium 8.9 mg/dL (8.5-10.1) 01/04/22 05:13 Corrected Calcium 10.3 mg/dL (8.5-10.1) H 01/04/22 05:13 Total Bilirubin 0.90 mg/dL (0.2-1.0) 01/04/22 05:13 AST 27 Units/L (15-37) 01/04/22 05:13 ALT 32 Units/L (12-78) 01/04/22 05:13 Alkaline Phosphatase 158 Units/L (46-116) H 01/04/22 05:13 Total Protein 8.1 g/dL (6.4-8.2) 01/04/22 05:13 Albumin 2.3 g/dL (3.4-5.0) L 01/04/22 05:13 Globulin 5.8 g/dL (2.5-4.5) H 01/04/22 05:13 Albumin/Globulin Ratio 0.4 Ratio (1.1-2.1) L 01/04/22 05:13 Specimen Type Clean catch urine 12/31/21 08:30 Urine Color Yellow (YELLOW) 12/31/21 08:30 Urine Appearance Clear (CLEAR) 12/31/21 08:30 Urine pH 6.0 (5.0 - 8.0) 12/31/21 08:30 Ur Specific [place] 1.015 (1.000-1.030) 12/31/21 08:30 Urine Protein Negative (NEGATIVE) 12/31/21 08:30 Urine Glucose (UA) Negative (NEGATIVE) 12/31/21 08:30 Urine Ketones Negative (NEGATIVE) 12/31/21 08:30 Urine Blood Negative (NEGATIVE) 12/31/21 08:30 Urine Nitrite Negative (NEGATIVE) 12/31/21 08:30 Urine Bilirubin Negative (NEGATIVE) 12/31/21 08:30 Urine Urobilinogen Normal (NORMAL) 12/31/21 08:30 Ur Leukocyte Esterase Negative (NEGATIVE) 12/31/21 08:30 Vancomycin Trough 12.2 ug/mL (15-20) L 01/03/22 19:59 SARS-CoV-2 (PCR) Negative (NEGATIVE) 12/31/21 08:50 - Plan (1) Acute epididymitis Status: Acute Plan: NORMAL SALINE AT KVO, VANCOMYCIN 1.25G IV Q12H, FORTAZ 1G IV Q8H, TORADOL 30MG IV Q8H, FLAGYL 500MG IV Q12H, MORPHINE 4MG IV Q4H PRN, GENTAMICIN OINTMENT BID. RESUME HOME MEDS (2) HTN (hypertension) Status: Chronic Qualifiers: Hypertension type: primary hypertension Qualified Code(s): I10 - Essential (primary) hypertension (3) Hypothyroidism Status: Chronic Qualifiers: Hypothyroidism type: acquired Qualified Code(s): E03.9 - Hypothyroidism, unspecified (4) Diabetes mellitus Status: Chronic Qualifiers: Diabetes mellitus type: type 2 Diabetes mellitus senior living insulin use: with senior living use Diabetes mellitus complication status: with other specified complication Qualified Code(s): E11.69 - Type 2 diabetes mellitus with other specified complication; Z79.4 - longterm (current) use of insulin
[2022-01-04] MEDS ORDERED: FORTAZ or TAZICEF VIAL INJ 1 G in NS 100 ML IV + SPIKE MINIBAG* 100 ML IV SCH (14:00)
--- NOTE | 2022-01-04 14:19 | DR.PROGNOT ---
Hospital Progress Notes - Progress Note for Day of: Progress Note Date: 01/04/22 - Chief Complaint Chief Complaint: feeling better today with less pain . WBC is up 20.1 .. BS !! . culture G+ Rods. afebrile .. - Past Medical Family Social History Past Med/Fam/Surg Hx: No changes since H&P Allergies: Allergies Penicillins Allergy (Verified 12/28/21 08:43) - Review Of Systems ROS: No change since H&P - Vital Signs Vital Signs: Temperature 98.4 F Pulse Rate [Left Radial] 67 Pulse Rate 84 Respiratory Rate 20 Blood Pressure [Right Arm] 122/76 Blood Pressure 121/71 O2 Sat by Pulse Oximetry 91 - Physical Exam Oriented: Normal Eyes: Normal Ear: Normal Nose: Normal Throat: Normal Respiratory: Generalized, Diminished Cardiovascular: Normal : Testicular Pain, Other (SCROTAL EDEMA AND PAIN ) GI:Auscultation: Normal GI:Palpation: Normal GI: Tenderness: Normal Skin: Normal, Other (still able to feel deep induration at the base of penis ..) Musculoskeletal: Normal Psychiatric: Normal Mood Description: Calm Affect: Normal Speech Pattern: Clear, Appropriate - Laboratory and Diagnostics Result Diagrams: 01/04/22 05:13 01/04/22 05:13 Labs: 01/03/22 11:00 Penis Wound Gram Stain - Final 01/03/22 11:00 Penis Wound Culture - Preliminary 01/01/22 09:30 Penis Wound Culture - Final 12/31/21 07:58 Blood Blood Culture - Preliminary 12/31/21 07:55 Blood Blood Culture - Preliminary Laboratory WBC 20.1 X10^3/uL (3.6-10.0) H 01/04/22 05:13 RBC 5.02 X10^6/uL (4.7-6.0) 01/04/22 05:13 Hgb 15.2 g/dL (13.5-18.0) 01/04/22 05:13 Hct 44.9 % (42.0-54.0) 01/04/22 05:13 MCV 89.4 fL (80.0-100.0) 01/04/22 05:13 MCH 30.3 pg (27.0-34.0) 01/04/22 05:13 MCHC 33.9 g/dL (33.0-35.0) 01/04/22 05:13 RDW 15.3 % (11.6-16.5) 01/04/22 05:13 Plt Count 385 X10^3/uL (150.0-450.0) 01/04/22 05:13 Plt Count Comment Adequate (ADEQUATE) 01/04/22 05:13 MPV 6.7 fL (7.4-11.0) L 01/04/22 05:13 Neut % (Auto) 91.2 % (42.0-75.0) H 01/04/22 05:13 Lymph % (Auto) 5.8 % (21.0-51.0) L 01/04/22 05:13 [place] % (Auto) 2.4 % (0.0-13.0) 01/04/22 05:13 Eos % (Auto) 0.5 % (0.9-2.9) L 01/04/22 05:13 Baso % (Auto) 0.1 % (0.2-1.0) L 01/04/22 05:13 Neut # (Auto) 18.4 x10^3/uL (2.2-4.8) H 01/04/22 05:13 Lymph # (Auto) 1.2 X10^3/uL (1.3-2.9) L 01/04/22 05:13 [place] # (Auto) 0.5 x10^3/uL (0.3-0.8) 01/04/22 05:13 Eos # (Auto) 0.1 x10^3/uL (0.0-0.2) 01/04/22 05:13 Baso # (Auto) 0.0 X10^3/uL (0.0-0.1) 01/04/22 05:13 Absolute Nucleated RBC 0.0 /100WBC 01/04/22 05:13 Total Counted 100 01/04/22 05:13 Neutrophils % (Manual) 87 % (39-76) H 01/04/22 05:13 Band Neutrophils % 1 % (0-10) 01/04/22 05:13 Lymphocytes % (Manual) 9 % (13-43) L 01/04/22 05:13 Monocytes % (Manual) 3 % (4-9) L 01/04/22 05:13 Plt Morphology Comment Normal (NORMAL) 01/04/22 05:13 RBC Morphology Normal (NORMAL) 01/04/22 05:13 Sodium 135 mmol/L (136-145) L 01/04/22 05:13 Corrected Sodium 136 mmol/L (136-145) 01/04/22 05:13 Potassium 4.6 mmol/L (3.5-5.1) 01/04/22 05:13 Chloride 102 mmol/L (98-107) 01/04/22 05:13 Carbon Dioxide 22.7 mmol/L (21-32) 01/04/22 05:13 BUN 15 mg/dL (7-18) 01/04/22 05:13 Creatinine 1.00 mg/dL (0.70-1.30) 01/04/22 05:13 Est GFR (MDRD) Af Amer > 60 (>60) 01/04/22 05:13 Est GFR (MDRD) Non-Af > 60 (>60) 01/04/22 05:13 Glucose 121 mg/dL (65-99) H 01/04/22 05:13 POC Glucose (mg/dL) 119 mg/dL (65-99) H 01/04/22 11:12 Lactic Acid 0.6 mmol/L (0.4-2.0) 01/01/22 05:12 Calcium 8.9 mg/dL (8.5-10.1) 01/04/22 05:13 Corrected Calcium 10.3 mg/dL (8.5-10.1) H 01/04/22 05:13 Total Bilirubin 0.90 mg/dL (0.2-1.0) 01/04/22 05:13 AST 27 Units/L (15-37) 01/04/22 05:13 ALT 32 Units/L (12-78) 01/04/22 05:13 Alkaline Phosphatase 158 Units/L (46-116) H 01/04/22 05:13 Total Protein 8.1 g/dL (6.4-8.2) 01/04/22 05:13 Albumin 2.3 g/dL (3.4-5.0) L 01/04/22 05:13 Globulin 5.8 g/dL (2.5-4.5) H 01/04/22 05:13 Albumin/Globulin Ratio 0.4 Ratio (1.1-2.1) L 01/04/22 05:13 Specimen Type Clean catch urine 12/31/21 08:30 Urine Color Yellow (YELLOW) 12/31/21 08:30 Urine Appearance Clear (CLEAR) 12/31/21 08:30 Urine pH 6.0 (5.0 - 8.0) 12/31/21 08:30 Ur Specific [place] 1.015 (1.000-1.030) 12/31/21 08:30 Urine Protein Negative (NEGATIVE) 12/31/21 08:30 Urine Glucose (UA) Negative (NEGATIVE) 12/31/21 08:30 Urine Ketones Negative (NEGATIVE) 12/31/21 08:30 Urine Blood Negative (NEGATIVE) 12/31/21 08:30 Urine Nitrite Negative (NEGATIVE) 12/31/21 08:30 Urine Bilirubin Negative (NEGATIVE) 12/31/21 08:30 Urine Urobilinogen Normal (NORMAL) 12/31/21 08:30 Ur Leukocyte Esterase Negative (NEGATIVE) 12/31/21 08:30 Vancomycin Trough 12.2 ug/mL (15-20) L 01/03/22 19:59 SARS-CoV-2 (PCR) Negative (NEGATIVE) 12/31/21 08:50 - Assessment and Plan 1: soft tissue abscess and epididymitis . sinus tract Lt lower penis with purulent drainage . same IV ABT pending final C&S .. - Problem Patient Problems: Patient Problems Acute epididymitis (Acute) N45.1 Diabetes mellitus (Chronic) E11.9 Right epididymitis (Acute) N45.1 HTN (hypertension) (Chronic) I10 Hypothyroidism (Chronic) E03.9
[2022-01-04] MEDS: CRESTOR TAB 10 MG PO SCH (20:25)
[2022-01-04] MEDS: COLACE CAP 100 MG PO SCH (20:26)
[2022-01-04] MEDS: ACCUNEB 1.25 MG NEBULE IN PRN (20:45)
[2022-01-05] MEDS: TORADOL 30 MG VIAL IVP SCH ×3 (02:45→19:30)
[2022-01-05] MEDS: FORTAZ or TAZICEF VIAL INJ 1 G in NS 100 ML IV 100 ML IV SCH ×3 (05:10→23:00)
[2022-01-05 06:03] LABS: BASOPHILS # (AUTO) 0.1 X10^3/uL (0.0-0.1); BASOPHILS % (AUTO) 0.7 % (0.2-1.0); EOSINOPHILS # (AUTO) 0.2 x10^3/uL (0.0-0.2); EOSINOPHILS % (AUTO) 1.1 % (0.9-2.9); HEMATOCRIT 38.6 % (42.0-54.0); LYMPHOCYTES % (AUTO) 12.2 % (21.0-51.0); MEAN CORPUSCULAR HEMOGLOBIN 30.5 pg (27.0-34.0); MEAN CORPUSCULAR VOLUME 89.5 fL (80.0-100.0); MEAN PLATELET VOLUME 6.9 fL (7.4-11.0); MONOCYTES # (AUTO) 1.4 x10^3/uL (0.3-0.8); MONOCYTES % (AUTO) 8.5 % (0.0-13.0); NEUTROPHILS # (AUTO) 12.9 x10^3/uL (2.2-4.8); NEUTROPHILS % (AUTO) 77.5 % (42.0-75.0); RED BLOOD COUNT 4.31 X10^6/uL (4.7-6.0); WHITE BLOOD COUNT 16.7 X10^3/uL (3.6-10.0)
[2022-01-05 06:05] LABS: ALANINE AMINOTRANSFERASE 27 Units/L (12-78); ALKALINE PHOSPHATASE 127 Units/L (46-116); ASPARTATE AMINO TRANSFERASE 18 Units/L (15-37); BLOOD UREA NITROGEN 22 mg/dL (7-18); CALCIUM 8.1 mg/dL (8.5-10.1); CARBON DIOXIDE 23.2 mmol/L (21-32); CHLORIDE 105 mmol/L (98-107); COR CA(FOR HYPOALB) 9.7 mg/dL (8.5-10.1); COR NA(FOR HYPERGLY) 137 mmol/L (136-145); SODIUM 137 mmol/L (136-145); TOTAL PROTEIN 6.6 g/dL (6.4-8.2); eGFR NON BLACK RACES > 60 (>60)
[2022-01-05 06:07] LABS: HEMOGLOBIN 13.1 g/dL (13.5-18.0)
[2022-01-05] MEDS ORDERED: GLUCOPHAGE ONE ×2 (08:45→19:39)
[2022-01-05] MEDS: NORVASC TAB 10 MG PO SCH (08:49)
[2022-01-05] MEDS: GLUCOPHAGE PO SCH ×2 (08:49→21:22)
[2022-01-05] MEDS: VANCOMYCIN IV *PREMIX 1.5 G/300 ML BAG 1.5 G/300 ML PIGGYBACK IV SCH ×2 (08:49→21:21)
[2022-01-05] MEDS: PAXIL PO SCH (08:50)
[2022-01-05] MEDS: SYNTHROID 100 mcg TAB PO SCH (08:50)
[2022-01-05] MEDS: NICOTINE PATCH TD SCH (08:50)
[2022-01-05] MEDS: GENTAMICIN TOPICAL OINT TOP SCH ×2 (08:50→21:32)
[2022-01-05] MEDS: ACCUNEB 1.25 MG NEBULE IN PRN ×2 (08:56→20:05)
[2022-01-05] MEDS: NS 1,000 ML IV 1,000 ML IV SCH (09:22)
[2022-01-05 21:12] LABS: VANCOMYCIN,TROUGH 14.9 ug/mL (15-20)
[2022-01-05] MEDS: COLACE CAP 100 MG PO SCH (21:22)
[2022-01-05] MEDS: CRESTOR TAB 10 MG PO SCH (21:22)
[2022-01-06] MEDS: TORADOL 30 MG VIAL IVP SCH ×3 (03:19→20:47)
[2022-01-06] MEDS: FORTAZ or TAZICEF VIAL INJ 1 G in NS 100 ML IV 100 ML IV SCH ×3 (05:37→22:25)
[2022-01-06 06:25] LABS: BASOPHILS # (AUTO) 0.2 X10^3/uL (0.0-0.1); BASOPHILS % (AUTO) 1.1 % (0.2-1.0); EOSINOPHILS # (AUTO) 0.2 x10^3/uL (0.0-0.2); EOSINOPHILS % (AUTO) 1.1 % (0.9-2.9); HEMATOCRIT 42.2 % (42.0-54.0); HEMOGLOBIN 14.1 g/dL (13.5-18.0); LYMPHOCYTES # (AUTO) 2.4 X10^3/uL (1.3-2.9); LYMPHOCYTES % (AUTO) 16.1 % (21.0-51.0); MEAN CORPUSCULAR HEMOGLOBIN 30.2 pg (27.0-34.0); MEAN CORPUSCULAR HGB CONC 33.5 g/dL (33.0-35.0); MEAN CORPUSCULAR VOLUME 90.2 fL (80.0-100.0); MEAN PLATELET VOLUME 7.2 fL (7.4-11.0); MONOCYTES # (AUTO) 1.2 x10^3/uL (0.3-0.8); MONOCYTES % (AUTO) 7.9 % (0.0-13.0); NEUTROPHILS % (AUTO) 73.8 % (42.0-75.0); RED BLOOD COUNT 4.68 X10^6/uL (4.7-6.0); RED CELL DISTRIBUTION WIDTH 15.1 % (11.6-16.5); WHITE BLOOD COUNT 14.9 X10^3/uL (3.6-10.0)
[2022-01-06 06:41] LABS: ALANINE AMINOTRANSFERASE 27 Units/L (12-78); ALBUMIN 2.2 g/dL (3.4-5.0); ALKALINE PHOSPHATASE 147 Units/L (46-116); ASPARTATE AMINO TRANSFERASE 21 Units/L (15-37); BLOOD UREA NITROGEN 16 mg/dL (7-18); CALCIUM 8.3 mg/dL (8.5-10.1); CARBON DIOXIDE 23.3 mmol/L (21-32); CHLORIDE 106 mmol/L (98-107); COR CA(FOR HYPOALB) 9.7 mg/dL (8.5-10.1); CREATININE 0.91 mg/dL (0.70-1.30); SODIUM 139 mmol/L (136-145); TOTAL PROTEIN 7.3 g/dL (6.4-8.2); eGFR NON BLACK RACES > 60 (>60)
[2022-01-06 07:20] LABS: BAND NEUTROPHILS % 3 % (0-10); PLATELET MORPHOLOGY COMMENT NORMAL (NORMAL)
[2022-01-06] MEDS ORDERED: GLUCOPHAGE ONE ×2 (10:01→20:17)
[2022-01-06] MEDS: GENTAMICIN TOPICAL OINT TOP SCH ×2 (10:07→20:47)
[2022-01-06] MEDS: VANCOMYCIN IV *PREMIX 1.5 G/300 ML BAG 1.5 G/300 ML PIGGYBACK IV SCH ×2 (10:08→20:48)
[2022-01-06] MEDS: GLUCOPHAGE PO SCH ×2 (10:08→20:47)
[2022-01-06] MEDS: NICOTINE PATCH TD SCH (10:08)
[2022-01-06] MEDS: NORVASC TAB 10 MG PO SCH (10:09)
[2022-01-06] MEDS: PAXIL PO SCH (10:10)
[2022-01-06] MEDS: SYNTHROID 100 mcg TAB PO SCH (10:10)
--- NOTE | 2022-01-06 12:42 | PCM.PROG ---
Progress Note - Progress Note for Day of Date of Exam: 01/05/22 - Subjective Subjective: WAS ADMITTED FOR TREATMENT OF ACUTE BILATERAL EPIDIDYMITIS AND ABSCESS AT THE BASE OF THE PENIS. HE HAS A PMH OF HTN, HYPOTHYROIDISM, DM II. TODAY, HE IS ALERT AND ORIENTED, LYING IN BED ON MORNING ROUNDS. HE CONTINUES WITH COMPLAINTS OF TESTICULAR PAIN AND SCROTAL SWELLING. HE REPORTS THAT PAIN AND SWELLING HAVE SLIGHTLY IMPROVED TODAY. PERFORMED AN ASPIRATION AT BEDSIDE AND ONLY COLLECTED BLOODY DRAINAGE. HE SENT DRAINAGE FOR A CULTURE. HIS VITALS THIS MORNING ARE: 98.2-60-18-92%-127/75. LABS WERE OBTAINED. WBC DECREASED TO 16.7, RBC 4.31, HGB 13.1, HCT 38.6, SODIUM 137, POTASSIUM 3.7, CHLORIDE 105, BUN 22, CREATININE 0.90, GLUCOSE 115, CALCIUM 8.1, AST 18, ALT 27, ALK PHOS 127, CRP 128.70, TOTAL PROTEIN 6.6, ALBUMIN 2.0. WOUND AND BLOOD CULTURES ARE PENDING. AN ABDOMEN/PELVIS CT WITH CONTRAST WAS OBTAINED YESTERDAY AND REVEALED: 1. Loculated fluid collection base of the penis could be related abscess, hematoma, or seroma. 2. Posterior left bladder diverticulum. HE CONTINUES TO RECEIVE NORMAL SALINE AT KVO, VANCOMYCIN 1.25G IV Q12H, FORTAZ 1G IV Q8H, FLAGYL 500MG IV Q12H, MORPHINE 4MG IV Q4H PRN, GENTAMICIN OINTMENT BID. HIS HOME MEDICATIONS OF ALBUTEROL NEB TX QID PRN, AMLODIPINE 10MG PO DAILY, SYNTHROID 200MCG DAILY, TORADOL 30MG IV Q8H, GLUCOPHAGE 500MG PO BID, PAXIL 20MG PO HS, CRESTOR 10MG PO HS WERE ALSO RESUMED. OTHERWISE, WE WILL CONTINUE WITH CURRENT PLAN OF CARE TODAY. WE PLAN TO FOLLOW-UP WITH AM LABS AND CONTINUE TO MONITOR. TIME SPENT ON CLINICAL ASSESSMENT, REVIWING LABS AND IMAGING, DECISION MAKING, AND DOCUMENTATION GREATER THAN 45 MINUTES. - Past Medical Family Social History Past Med/Fam/Surg Hx: No changes since H&P Allergies: Allergies Penicillins Allergy (Verified 12/28/21 08:43) - Review of Systems ROS: No change since H&P - Vital Signs and I&O's Vital Signs: Temperature 98 F Pulse Rate [Left Radial] 60 Pulse Rate 61 Respiratory Rate 18 Blood Pressure [Right Arm] 150/83 Blood Pressure 121/71 O2 Sat by Pulse Oximetry 94 Intake and Output: Intake & Output 01/04/22 01/05/22 01/06/22 01/07/22 11:59 11:59 11:59 11:59 Intake Total 1456 / 1456 1835 / 1835 2428 / 2428 Balance 1456 / 1456 1835 / 1835 2428 / 2428 - Physical Exam Oriented: Normal Eyes: Normal Ear: Normal Nose: Normal Throat: Normal Respiratory: Generalized, Diminished Cardiovascular: Normal : Testicular Pain, Other (SCROTAL EDEMA AND PAIN ) Auscultation: Bowel Sounds: Normal Palpation: Normal Tenderness: Normal Skin: Normal, Other (still able to feel deep induration at the base of penis ..) Musculoskeletal: Normal Psychiatric: Normal Mood Description: Calm Affect: Normal Speech Pattern: Clear, Appropriate - Laboratory and Diagnostics Result Diagrams: 01/06/22 05:13 01/06/22 05:13 Labs: 12/31/21 07:58 Blood Blood Culture - Final 12/31/21 07:55 Blood Blood Culture - Final 01/03/22 11:00 Penis Wound Gram Stain - Final 01/03/22 11:00 Penis Wound Culture - Preliminary 01/01/22 09:30 Penis Wound Culture - Final Laboratory WBC 14.9 X10^3/uL (3.6-10.0) H 01/06/22 05:13 RBC 4.68 X10^6/uL (4.7-6.0) L 01/06/22 05:13 Hgb 14.1 g/dL (13.5-18.0) 01/06/22 05:13 Hct 42.2 % (42.0-54.0) 01/06/22 05:13 MCV 90.2 fL (80.0-100.0) 01/06/22 05:13 MCH 30.2 pg (27.0-34.0) 01/06/22 05:13 MCHC 33.5 g/dL (33.0-35.0) 01/06/22 05:13 RDW 15.1 % (11.6-16.5) 01/06/22 05:13 Plt Count 446 X10^3/uL (150.0-450.0) 01/06/22 05:13 Plt Count Comment Adequate (ADEQUATE) 01/06/22 05:13 MPV 7.2 fL (7.4-11.0) L 01/06/22 05:13 Neut % (Auto) 73.8 % (42.0-75.0) 01/06/22 05:13 Lymph % (Auto) 16.1 % (21.0-51.0) L 01/06/22 05:13 [place] % (Auto) 7.9 % (0.0-13.0) 01/06/22 05:13 Eos % (Auto) 1.1 % (0.9-2.9) 01/06/22 05:13 Baso % (Auto) 1.1 % (0.2-1.0) H 01/06/22 05:13 Neut # (Auto) 11.0 x10^3/uL (2.2-4.8) H 01/06/22 05:13 Lymph # (Auto) 2.4 X10^3/uL (1.3-2.9) 01/06/22 05:13 [place] # (Auto) 1.2 x10^3/uL (0.3-0.8) H 01/06/22 05:13 Eos # (Auto) 0.2 x10^3/uL (0.0-0.2) 01/06/22 05:13 Baso # (Auto) 0.2 X10^3/uL (0.0-0.1) H 01/06/22 05:13 Absolute Nucleated RBC 0.0 /100WBC 01/06/22 05:13 Total Counted 100 01/06/22 05:13 Neutrophils % (Manual) 79 % (39-76) H 01/06/22 05:13 Band Neutrophils % 3 % (0-10) 01/06/22 05:13 Lymphocytes % (Manual) 13 % (13-43) 01/06/22 05:13 Monocytes % (Manual) 4 % (4-9) 01/06/22 05:13 Eosinophils % (Manual) 1 % (0-6) 01/06/22 05:13 Plt Morphology Comment Normal (NORMAL) 01/06/22 05:13 RBC Morphology Normal (NORMAL) 01/06/22 05:13 Sodium 139 mmol/L (136-145) 01/06/22 05:13 Corrected Sodium TNP 01/06/22 05:13 Potassium 4.1 mmol/L (3.5-5.1) 01/06/22 05:13 Chloride 106 mmol/L (98-107) 01/06/22 05:13 Carbon Dioxide 23.3 mmol/L (21-32) 01/06/22 05:13 BUN 16 mg/dL (7-18) 01/06/22 05:13 Creatinine 0.91 mg/dL (0.70-1.30) 01/06/22 05:13 Est GFR (MDRD) Af Amer > 60 (>60) 01/06/22 05:13 Est GFR (MDRD) Non-Af > 60 (>60) 01/06/22 05:13 Glucose 84 mg/dL (65-99) 01/06/22 05:13 POC Glucose (mg/dL) 118 mg/dL (65-99) H 01/06/22 11:35 Lactic Acid 0.6 mmol/L (0.4-2.0) 01/01/22 05:12 Calcium 8.3 mg/dL (8.5-10.1) L 01/06/22 05:13 Corrected Calcium 9.7 mg/dL (8.5-10.1) 01/06/22 05:13 Total Bilirubin 0.40 mg/dL (0.2-1.0) 01/06/22 05:13 AST 21 Units/L (15-37) 01/06/22 05:13 ALT 27 Units/L (12-78) 01/06/22 05:13 Alkaline Phosphatase 147 Units/L (46-116) H 01/06/22 05:13 C-Reactive Protein 70.30 mg/L (0-3.0) H 01/06/22 05:13 Total Protein 7.3 g/dL (6.4-8.2) 01/06/22 05:13 Albumin 2.2 g/dL (3.4-5.0) L 01/06/22 05:13 Globulin 5.1 g/dL (2.5-4.5) H 01/06/22 05:13 Albumin/Globulin Ratio 0.4 Ratio (1.1-2.1) L 01/06/22 05:13 Specimen Type Clean catch urine 12/31/21 08:30 Urine Color Yellow (YELLOW) 12/31/21 08:30 Urine Appearance Clear (CLEAR) 12/31/21 08:30 Urine pH 6.0 (5.0 - 8.0) 12/31/21 08:30 Ur Specific [place] 1.015 (1.000-1.030) 12/31/21 08:30 Urine Protein Negative (NEGATIVE) 12/31/21 08:30 Urine Glucose (UA) Negative (NEGATIVE) 12/31/21 08:30 Urine Ketones Negative (NEGATIVE) 12/31/21 08:30 Urine Blood Negative (NEGATIVE) 12/31/21 08:30 Urine Nitrite Negative (NEGATIVE) 12/31/21 08:30 Urine Bilirubin Negative (NEGATIVE) 12/31/21 08:30 Urine Urobilinogen Normal (NORMAL) 12/31/21 08:30 Ur Leukocyte Esterase Negative (NEGATIVE) 12/31/21 08:30 Vancomycin Trough 14.9 ug/mL (15-20) L 01/05/22 20:30 SARS-CoV-2 (PCR) Negative (NEGATIVE) 12/31/21 08:50 - Plan (1) Acute epididymitis Status: Acute Plan: NORMAL SALINE AT KVO, VANCOMYCIN 1.25G IV Q12H, FORTAZ 1G IV Q8H, TORADOL 30MG IV Q8H, FLAGYL 500MG IV Q12H, MORPHINE 4MG IV Q4H PRN, GENTAMICIN OINTMENT BID. RESUME HOME MEDS (2) HTN (hypertension) Status: Chronic Qualifiers: Hypertension type: primary hypertension Qualified Code(s): I10 - Essential (primary) hypertension (3) Hypothyroidism Status: Chronic Qualifiers: Hypothyroidism type: acquired Qualified Code(s): E03.9 - Hypothyroidism, unspecified (4) Diabetes mellitus Status: Chronic Qualifiers: Diabetes mellitus type: type 2 Diabetes mellitus biometrics specialist insulin use: with biometrics specialist use Diabetes mellitus complication status: with other specified complication Qualified Code(s): E11.69 - Type 2 diabetes mellitus with other specified complication; Z79.4 - tanning consultant (current) use of insulin
--- NOTE | 2022-01-06 13:23 | PCM.PROG ---
Progress Note - Progress Note for Day of Date of Exam: 01/06/22 - Subjective Subjective: WAS ADMITTED FOR TREATMENT OF ACUTE BILATERAL EPIDIDYMITIS AND ABSCESS AT THE BASE OF THE PENIS. HE HAS A PMH OF HTN, HYPOTHYROIDISM, DM II. TODAY, HE IS ALERT AND ORIENTED, LYING IN BED ON MORNING ROUNDS. HE CONTINUES WITH COMPLAINTS OF TESTICULAR PAIN AND SCROTAL SWELLING. HE REPORTS THAT PAIN AND SWELLING HAVE SLIGHTLY IMPROVED TODAY. PERFORMED AN ASPIRATION AT BEDSIDE ON THE AND SENT DRAINAGE FOR A CULTURE. HIS VITALS THIS MORNING ARE: 98.1-66-18-93%-139/82. LABS WERE OBTAINED. WBC 14.9, RBC 4.69, HGB 14.1, HCT 42.2, PLT COUNT 446, SODIUM 139, POTASSIUM 4.1, BUN 16, CREATININE 0.91, GLUCOSE 84, CALCIUM 8.3, AST 21, ALT 27, ALK PHOS 147, CRP 70.30, TOTAL PROTEIN 7.3, ALBUMIN 2.2. WOUND AND BLOOD CULTURES ARE PENDING. AN ABDOMEN/PELVIS CT WITH CONTRAST WAS OBTAINED YESTERDAY AND REVEALED: 1. Loculated fluid collection base of the penis could be related abscess, hematoma, or seroma. 2. Posterior left bladder diverticulum. HE CONTINUES TO RECEIVE MANDY L SALINE AT KVO, VANCOMYCIN 1.25G IV Q12H, FORTAZ 1G IV Q8H, FLAGYL 500MG IV Q12H, MORPHINE 4MG IV Q4H PRN, GENTAMICIN OINTMENT BID. HIS HOME MEDICATIONS OF ALBUTEROL NEB [place] QID PRN, AMLODIPINE 10MG PO DAILY, SYNTHROID 200MCG DAILY, TORADOL 30MG IV Q8H, GLUCOPHAGE 500MG PO BID, PAXIL 20MG PO HS, CRESTOR 10MG PO HS WERE ALSO RESUMED. OTHERWISE, WE WILL CONTINUE WITH CURRENT PLAN OF CARE TODAY. WE PLAN TO FOLLOW-UP WITH AM LABS AND CONTINUE TO MONITOR. TIME SPENT ON CLINICAL ASSESSMENT, REVIWING LABS AND IMAGING, DECISION MAKING, AND DOCUMENTATION GREATER THAN 45 MINUTES. - Past Medical Family Social History Past Med/Fam/Surg Hx: No changes since H&P Allergies: Allergies Penicillins Allergy (Verified 12/28/21 08:43) - Review of Systems ROS: No change since H&P - Vital Signs and I&O's Vital Signs: Temperature 98 F Pulse Rate [Left Radial] 60 Pulse Rate 61 Respiratory Rate 18 Blood Pressure [Right Arm] 150/83 Blood Pressure 121/71 O2 Sat by Pulse Oximetry 94 Intake and Output: Intake & Output 01/04/22 01/05/22 01/06/22 01/07/22 11:59 11:59 11:59 11:59 Intake Total 1456 / 1456 1835 / 1835 2428 / 2428 Balance 1456 / 1456 1835 / 1835 2428 / 2428 - Physical Exam Oriented: Normal Eyes: Normal Ear: Normal Nose: Normal Throat: Normal Respiratory: Generalized, Diminished Cardiovascular: Normal : Testicular Pain, Other (SCROTAL EDEMA AND PAIN ) Auscultation: Bowel Sounds: Normal Tenderness: Normal Skin: Normal, Other (still able to feel deep induration at the base of penis ..) Musculoskeletal: Normal Psychiatric: Normal Mood Description: Calm Affect: Normal Speech Pattern: Clear, Appropriate - Laboratory and Diagnostics Result Diagrams: 01/06/22 05:13 01/06/22 05:13 Labs: 12/31/21 07:58 Blood Blood Culture - Final 12/31/21 07:55 Blood Blood Culture - Final 01/03/22 11:00 Penis Wound Gram Stain - Final 01/03/22 11:00 Penis Wound Culture - Preliminary 01/01/22 09:30 Penis Wound Culture - Final Laboratory WBC 14.9 X10^3/uL (3.6-10.0) H 01/06/22 05:13 RBC 4.68 X10^6/uL (4.7-6.0) L 01/06/22 05:13 Hgb 14.1 g/dL (13.5-18.0) 01/06/22 05:13 Hct 42.2 % (42.0-54.0) 01/06/22 05:13 MCV 90.2 fL (80.0-100.0) 01/06/22 05:13 MCH 30.2 pg (27.0-34.0) 01/06/22 05:13 MCHC 33.5 g/dL (33.0-35.0) 01/06/22 05:13 RDW 15.1 % (11.6-16.5) 01/06/22 05:13 Plt Count 446 X10^3/uL (150.0-450.0) 01/06/22 05:13 Plt Count Comment Adequate (ADEQUATE) 01/06/22 05:13 MPV 7.2 fL (7.4-11.0) L 01/06/22 05:13 Neut % (Auto) 73.8 % (42.0-75.0) 01/06/22 05:13 Lymph % (Auto) 16.1 % (21.0-51.0) L 01/06/22 05:13 [place] % (Auto) 7.9 % (0.0-13.0) 01/06/22 05:13 Eos % (Auto) 1.1 % (0.9-2.9) 01/06/22 05:13 Baso % (Auto) 1.1 % (0.2-1.0) H 01/06/22 05:13 Neut # (Auto) 11.0 x10^3/uL (2.2-4.8) H 01/06/22 05:13 Lymph # (Auto) 2.4 X10^3/uL (1.3-2.9) 01/06/22 05:13 [place] # (Auto) 1.2 x10^3/uL (0.3-0.8) H 01/06/22 05:13 Eos # (Auto) 0.2 x10^3/uL (0.0-0.2) 01/06/22 05:13 Baso # (Auto) 0.2 X10^3/uL (0.0-0.1) H 01/06/22 05:13 Absolute Nucleated RBC 0.0 /100WBC 01/06/22 05:13 Total Counted 100 01/06/22 05:13 Neutrophils % (Manual) 79 % (39-76) H 01/06/22 05:13 Band Neutrophils % 3 % (0-10) 01/06/22 05:13 Lymphocytes % (Manual) 13 % (13-43) 01/06/22 05:13 Monocytes % (Manual) 4 % (4-9) 01/06/22 05:13 Eosinophils % (Manual) 1 % (0-6) 01/06/22 05:13 Plt Morphology Comment Normal (NORMAL) 01/06/22 05:13 RBC Morphology Normal (NORMAL) 01/06/22 05:13 Sodium 139 mmol/L (136-145) 01/06/22 05:13 Corrected Sodium TNP 01/06/22 05:13 Potassium 4.1 mmol/L (3.5-5.1) 01/06/22 05:13 Chloride 106 mmol/L (98-107) 01/06/22 05:13 Carbon Dioxide 23.3 mmol/L (21-32) 01/06/22 05:13 BUN 16 mg/dL (7-18) 01/06/22 05:13 Creatinine 0.91 mg/dL (0.70-1.30) 01/06/22 05:13 Est GFR (MDRD) Af Amer > 60 (>60) 01/06/22 05:13 Est GFR (MDRD) Non-Af > 60 (>60) 01/06/22 05:13 Glucose 84 mg/dL (65-99) 01/06/22 05:13 POC Glucose (mg/dL) 118 mg/dL (65-99) H 01/06/22 11:35 Lactic Acid 0.6 mmol/L (0.4-2.0) 01/01/22 05:12 Calcium 8.3 mg/dL (8.5-10.1) L 01/06/22 05:13 Corrected Calcium 9.7 mg/dL (8.5-10.1) 01/06/22 05:13 Total Bilirubin 0.40 mg/dL (0.2-1.0) 01/06/22 05:13 AST 21 Units/L (15-37) 01/06/22 05:13 ALT 27 Units/L (12-78) 01/06/22 05:13 Alkaline Phosphatase 147 Units/L (46-116) H 01/06/22 05:13 C-Reactive Protein 70.30 mg/L (0-3.0) H 01/06/22 05:13 Total Protein 7.3 g/dL (6.4-8.2) 01/06/22 05:13 Albumin 2.2 g/dL (3.4-5.0) L 01/06/22 05:13 Globulin 5.1 g/dL (2.5-4.5) H 01/06/22 05:13 Albumin/Globulin Ratio 0.4 Ratio (1.1-2.1) L 01/06/22 05:13 Specimen Type Clean catch urine 12/31/21 08:30 Urine Color Yellow (YELLOW) 12/31/21 08:30 Urine Appearance Clear (CLEAR) 12/31/21 08:30 Urine pH 6.0 (5.0 - 8.0) 12/31/21 08:30 Ur Specific [place] 1.015 (1.000-1.030) 12/31/21 08:30 Urine Protein Negative (NEGATIVE) 12/31/21 08:30 Urine Glucose (UA) Negative (NEGATIVE) 12/31/21 08:30 Urine Ketones Negative (NEGATIVE) 12/31/21 08:30 Urine Blood Negative (NEGATIVE) 12/31/21 08:30 Urine Nitrite Negative (NEGATIVE) 12/31/21 08:30 Urine Bilirubin Negative (NEGATIVE) 12/31/21 08:30 Urine Urobilinogen Normal (NORMAL) 12/31/21 08:30 Ur Leukocyte Esterase Negative (NEGATIVE) 12/31/21 08:30 Vancomycin Trough 14.9 ug/mL (15-20) L 01/05/22 20:30 SARS-CoV-2 (PCR) Negative (NEGATIVE) 12/31/21 08:50 - Plan (1) Acute epididymitis Status: Acute Plan: NORMAL SALINE AT KVO, VANCOMYCIN 1.25G IV Q12H, FORTAZ 1G IV Q8H, TORADOL 30MG IV Q8H, FLAGYL 500MG IV Q12H, MORPHINE 4MG IV Q4H PRN, GENTAMICIN OINTMENT BID. RESUME HOME MEDS (2) HTN (hypertension) Status: Chronic Qualifiers: Hypertension type: primary hypertension Qualified Code(s): I10 - Essential (primary) hypertension (3) Hypothyroidism Status: Chronic Qualifiers: Hypothyroidism type: acquired Qualified Code(s): E03.9 - Hypothyroidism, unspecified (4) Diabetes mellitus Status: Chronic Qualifiers: Diabetes mellitus type: type 2 Diabetes mellitus half-way insulin use: with half-way use Diabetes mellitus complication status: with other specified complication Qualified Code(s): E11.69 - Type 2 diabetes mellitus with other specified complication; Z79.4 - FPC (current) use of insulin
[2022-01-06] MEDS: CRESTOR TAB 10 MG PO SCH (20:47)
[2022-01-06] MEDS: COLACE CAP 100 MG PO SCH (20:48)
[2022-01-06] MEDS: ACCUNEB 1.25 MG NEBULE IN PRN (21:07)
[2022-01-07] MEDS: TORADOL 30 MG VIAL IVP SCH ×3 (03:04→20:50)
[2022-01-07] MEDS: NS 1,000 ML IV 1,000 ML IV SCH ×3 (03:50→09:38)
[2022-01-07] MEDS: FORTAZ or TAZICEF VIAL INJ 1 G in NS 100 ML IV 100 ML IV SCH ×3 (05:21→22:47)
[2022-01-07 06:34] LABS: BASOPHILS # (AUTO) 0.1 X10^3/uL (0.0-0.1); EOSINOPHILS # (AUTO) 0.2 x10^3/uL (0.0-0.2); EOSINOPHILS % (AUTO) 1.4 % (0.9-2.9); HEMATOCRIT 39.3 % (42.0-54.0); HEMOGLOBIN 13.5 g/dL (13.5-18.0); LYMPHOCYTES # (AUTO) 2.4 X10^3/uL (1.3-2.9); LYMPHOCYTES % (AUTO) 21.7 % (21.0-51.0); MEAN CORPUSCULAR HGB CONC 34.4 g/dL (33.0-35.0); MEAN CORPUSCULAR VOLUME 90.1 fL (80.0-100.0); MEAN PLATELET VOLUME 6.6 fL (7.4-11.0); MONOCYTES # (AUTO) 0.8 x10^3/uL (0.3-0.8); MONOCYTES % (AUTO) 7.7 % (0.0-13.0); NEUTROPHILS # (AUTO) 7.4 x10^3/uL (2.2-4.8); NEUTROPHILS % (AUTO) 68.2 % (42.0-75.0); RED BLOOD COUNT 4.36 X10^6/uL (4.7-6.0); RED CELL DISTRIBUTION WIDTH 14.9 % (11.6-16.5); WHITE BLOOD COUNT 10.9 X10^3/uL (3.6-10.0)
[2022-01-07 06:40] LABS: ALANINE AMINOTRANSFERASE 24 Units/L (12-78); ALBUMIN 2.2 g/dL (3.4-5.0); ALKALINE PHOSPHATASE 106 Units/L (46-116); ASPARTATE AMINO TRANSFERASE 14 Units/L (15-37); BLOOD UREA NITROGEN 15 mg/dL (7-18); CALCIUM 8.2 mg/dL (8.5-10.1); CARBON DIOXIDE 27.1 mmol/L (21-32); CHLORIDE 106 mmol/L (98-107); COR CA(FOR HYPOALB) 9.6 mg/dL (8.5-10.1); CREATININE 0.87 mg/dL (0.70-1.30); SODIUM 138 mmol/L (136-145); eGFR NON BLACK RACES > 60 (>60)
[2022-01-07] MEDS ORDERED: GLUCOPHAGE ONE ×2 (08:10→20:07)
[2022-01-07] MEDS: VANCOMYCIN IV *PREMIX 1.5 G/300 ML BAG 1.5 G/300 ML PIGGYBACK IV SCH ×2 (08:52→21:28)
[2022-01-07] MEDS: SYNTHROID 100 mcg TAB PO SCH (08:52)
[2022-01-07] MEDS: GLUCOPHAGE PO SCH ×2 (08:53→20:51)
[2022-01-07] MEDS: PAXIL PO SCH (08:53)
[2022-01-07] MEDS: NORVASC TAB 10 MG PO SCH (08:53)
[2022-01-07] MEDS: GENTAMICIN TOPICAL OINT TOP SCH (08:54)
[2022-01-07] MEDS: NICOTINE PATCH TD SCH (08:56)
[2022-01-07 14:01] VITALS: BMI 28.3
[2022-01-07] MEDS: CRESTOR TAB 10 MG PO SCH (20:51)
[2022-01-07] MEDS: COLACE CAP 100 MG PO SCH (20:51)
[2022-01-07 20:59] LABS: CREATININE 1.1 mg/dL (0.70-1.30); VANCOMYCIN,TROUGH 17.4 ug/mL (15-20)
[2022-01-08] MEDS: TORADOL 30 MG VIAL IVP SCH ×2 (03:22→11:07)
[2022-01-08] MEDS: FORTAZ or TAZICEF VIAL INJ 1 G in NS 100 ML IV 100 ML IV SCH (05:00)
[2022-01-08 05:55] LABS: BASOPHILS % (AUTO) 0.4 % (0.2-1.0); EOSINOPHILS # (AUTO) 0.2 x10^3/uL (0.0-0.2); EOSINOPHILS % (AUTO) 1.9 % (0.9-2.9); HEMATOCRIT 39.5 % (42.0-54.0); HEMOGLOBIN 13.6 g/dL (13.5-18.0); LYMPHOCYTES % (AUTO) 29.1 % (21.0-51.0); MEAN CORPUSCULAR HEMOGLOBIN 30.7 pg (27.0-34.0); MEAN CORPUSCULAR HGB CONC 34.5 g/dL (33.0-35.0); MEAN CORPUSCULAR VOLUME 88.8 fL (80.0-100.0); MONOCYTES % (AUTO) 9.5 % (0.0-13.0); NEUTROPHILS % (AUTO) 59.1 % (42.0-75.0); RED BLOOD COUNT 4.44 X10^6/uL (4.7-6.0); RED CELL DISTRIBUTION WIDTH 14.9 % (11.6-16.5); WHITE BLOOD COUNT 10.2 X10^3/uL (3.6-10.0)
[2022-01-08] MEDS ORDERED: GLUCOPHAGE ONE (08:17)
[2022-01-08] MEDS: GLUCOPHAGE PO SCH (08:44)
[2022-01-08] MEDS: NORVASC TAB 10 MG PO SCH (08:45)
[2022-01-08] MEDS: PAXIL PO SCH (08:45)
[2022-01-08] MEDS: NICOTINE PATCH TD SCH (08:45)
[2022-01-08] MEDS: VANCOMYCIN IV *PREMIX 1.5 G/300 ML BAG 1.5 G/300 ML PIGGYBACK IV SCH (08:45)
[2022-01-08] MEDS: SYNTHROID 100 mcg TAB PO SCH (08:45)
[2022-01-08 09:12] VITALS: BP 135/74
[2022-01-08] MEDS: NS 1,000 ML IV 1,000 ML IV SCH (09:12)
== END 2022-01-08 11:29 | disposition home or self-care (01) | DRG 710 ==
LOC: ER 06:46 → U 10:50 → MED/SURG 14:02
PROVIDERS: ADMIT Internal Medicine; ATTEND Internal Medicine
DX: E03.8 Other specified hypothyroidism; I10 Essential (primary) hypertension; Z79.4 Long term (current) use of insulin; F41.8 Other specified anxiety disorders; N50.89 Other specified disorders of the male genital organs; F32.89 Other specified depressive episodes; N50.82 Scrotal pain; N45.1 Epididymitis; R79.82 Elevated C-reactive protein (CRP); Z20.822 Contact with and (suspected) exposure to COVID-19; E11.65 Type 2 diabetes mellitus with hyperglycemia